=== PATIENT | male | born 1975 | race American Indian/Alaskan Native ===

== ENCOUNTER 2020-10-09 19:26 | Inpatient (IN) | payer OTHER ==
[2020-10-09] MEDS ORDERED: ASPIRIN 325 MG TAB PO ONE (20:13)
[2020-10-09 20:33] LABS: Basophils # (Auto) 0.1 K/mm3 (0.0-0.1); Basophils % (Auto) 1.5 % (0.0-1.8); Eosinophils % (Auto) 0.1 % (0.0-4.3); Hematocrit 45.8 % (35.5-45.6); Hemoglobin 14.9 gm/dl (11.8-15.2); Lymphocytes # (Auto) 1.7 K/mm3 (1.2-5.4); Lymphocytes % (Auto) 29.4 % (13.4-35.0); Mean Corpuscular HGB Conc 33 % (32-34); Mean Corpuscular Volume 83 fl (84-94); Monocytes # (Auto) 0.6 K/mm3 (0.0-0.8); Monocytes % (Auto) 9.6 % (0.0-7.3); Platelet Count 301 K/mm3 (140-440); Red Blood Count 5.55 M/mm3 (3.65-5.03); Red Cell Distribution Width 15.7 % (13.2-15.2)
[2020-10-09 20:41] LABS: INR 1.34 (0.87-1.13)
[2020-10-09 20:55] LABS: Albumin 3.2 g/dL (3.9-5)
--- NOTE | 2020-10-09 20:57 | Emergency Department Report ---
ED Chest Pain HPI - General Chief Complaint: Chest Pain Stated Complaint: CHEST PAIN/SOB/ABDOMINAL PAIN Time Seen by Provider: 10/09/20 20:18 Source: patient Mode of arrival: Ambulatory Limitations: No Limitations - History of Present Illness Initial Comments: This is a 44-year-old -[place] male presents to the emergency department with complaint of shortness of breath and left-sided chest pain and upper abdominal pain that has been going on for the past 4 days. It is associated with some nausea and vomiting. Patient also has an occasional mixed dry and productive cough. The patient says that the chest and abdominal pain feels like "gas that will not leave." He presents with extremely elevated blood pressure and does admit to a history of hypertension but says that he was taken off of his blood pressure medication by his physician. Patient quit smoking cigarettes about 2 weeks ago. He has a significant family history as his father had an [place] at the age of 43. No recent travel or sick contacts at home. No known aggravating or alleviating factors. - Related Data Allergies Allergy/AdvReac Type Severity Reaction Status Date / Time No Known Allergies Allergy Verified 10/09/20 20:07 Heart Score - HEART Score History: Slightly suspicious EKG: Non-specific Age: 45-65 Risk factors: 1-2 risk factors Troponin: > 3x normal limit HEART Score: 5 - EKG Read Time Time EKG Completed: 20:12 EKG Read Time: 20:15 - Critical Actions Critical Actions: 4-6 pts:12-16.6% risk of adverse cardiac event. Should be admitted ED Review of Systems ROS: Stated complaint: CHEST PAIN/SOB/ABDOMINAL PAIN Other details as noted in HPI Comment: All other systems reviewed and negative Constitutional: denies: chills, fever Eyes: denies: eye pain, vision change ENT: denies: ear pain, throat pain Respiratory: cough, shortness of breath Cardiovascular: chest pain. denies: edema Gastrointestinal: abdominal pain, nausea, vomiting Genitourinary: denies: dysuria, discharge Musculoskeletal: denies: back pain, arthralgia Skin: denies: rash, lesions Neurological: denies: headache, weakness ED Past Medical Hx - Past Medical History Previous Medical History?: Yes Hx Hypertension: Yes (Not on meds) - Surgical History Past Surgical History?: Yes Hx Appendectomy: Yes - Social History Smoking Status: Former Smoker Substance Use Type: None ED Physical Exam - General Limitations: No Limitations - Other Other exam information: GENERAL: The patient is well-developed well-nourished. HENT: Normocephalic. Atraumatic. Patient has moist mucous membranes. EYES: Extraocular motions are intact. NECK: Supple. Trachea is midline. CHEST/LUNGS: Coarse breath sounds throughout the chest. There is moderate tachypnea. No cough heard. HEART/CARDIOVASCULAR: Regular. There is moderate tachycardia. There is no murmur. ABDOMEN: Abdomen is soft, nontender. Patient has normal bowel sounds. There is no abdominal distention. SKIN: Skin is warm and dry. NEURO: The patient is awake, alert, and oriented. The patient is cooperative. The patient has no focal neurologic deficits. Normal speech. MUSCULOSKELETAL: There is no tenderness or deformity. There is no limitation range of motion. ED Course Vital Signs 10/09/20 10/09/20 10/09/20 20:05 21:30 21:46 Temperature 98.4 F Pulse Rate 126 H 116 H 116 H Respiratory 18 37 H 38 H Rate Blood Pressure 241/161 226/161 214/158 Blood Pressure [Left] O2 Sat by Pulse 98 96 99 Oximetry 10/09/20 10/09/20 10/09/20 22:00 22:02 22:11 Temperature 98.2 F Pulse Rate 122 H 123 H 100 H Respiratory 40 H 36 H Rate Blood Pressure 214/158 222/162 Blood Pressure 173/129 [Left] O2 Sat by Pulse 97 100 Oximetry - Consultations Consultation #1: 10/09/20 [id number] I spoke to the director paid media on-call, Dr. Hugo, regarding the patient's presentation, chest x-ray and EKG findings, as well as the elevated troponin. He agrees with the plan for placing the patient on heparin and they will follow the patient as a consult. SARAH score - Sarah Score Age > 65: (0) No Aspirin use within the Past 7 Days: (0) No 3 or more CAD Risk Factors: (0) No 2 or more Angina events in past 24 hrs: (1) Yes Known CAD with more than 50% Stenosis: (0) No Elevated Cardiac Markers: (1) Yes ST Deviation Greater than 0.5mm: (1) Yes SARAH Score: 3 ED Medical Decision Making - Lab Data Result diagrams: 10/09/20 20:18 10/09/20 20:18 Lab Results 10/09/20 10/09/20 10/09/20 Range/Units 20:18 20:18 20:23 WBC 5.8 (4.5-11.0) K/mm3 RBC 5.55 H (3.65-5.03) M/mm3 Hgb 14.9 (11.8-15.2) gm/dl Hct 45.8 H (35.5-45.6) % MCV 83 L (84-94) fl MCH 27 L (28-32) pg MCHC 33 (32-34) % RDW 15.7 H (13.2-15.2) % Plt Count 301 (140-440) K/mm3 Lymph % (Auto) 29.4 (13.4-35.0) % [place] % (Auto) 9.6 H (0.0-7.3) % Eos % (Auto) 0.1 (0.0-4.3) % Baso % (Auto) 1.5 (0.0-1.8) % Lymph # (Auto) 1.7 (1.2-5.4) K/mm3 [place] # (Auto) 0.6 (0.0-0.8) K/mm3 Eos # (Auto) 0.0 (0.0-0.4) K/mm3 Baso # (Auto) 0.1 (0.0-0.1) K/mm3 Seg Neutrophils % 59.4 (40.0-70.0) % Seg Neutrophils # 3.5 (1.8-7.7) K/mm3 PT (12.2-14.9) Sec. INR (0.87-1.13) D-Dimer (0-234) ng/mlDDU Sodium 130 L (137-145) mmol/L Potassium 4.0 (3.6-5.0) mmol/L Chloride 94.9 L (98-107) mmol/L Carbon Dioxide 21 L (22-30) mmol/L Anion Gap 18 mmol/L BUN 30 H (9-20) mg/dL Creatinine 2.6 H (0.8-1.3) mg/dL Estimated GFR 32 ml/min BUN/Creatinine Ratio 12 % Glucose 137 H (75-100) mg/dL Calcium 9.0 (8.4-10.2) mg/dL Ferritin (30.0-300.0) ng/mL Total Bilirubin 0.80 (0.1-1.2) mg/dL AST 54 H (5-40) units/L ALT 84 H (7-56) units/L Alkaline Phosphatase 128 (35-129) units/L Lactate Dehydrogenase (91-180) units/L Troponin T 0.121 H* (0.00-0.029) ng/mL C-Reactive Protein (0.00-1.30) mg/dL NT-Pro-B Natriuret Pep (0-450) pg/mL Total Protein 6.1 L (6.3-8.2) g/dL Albumin 3.2 L (3.9-5) g/dL Albumin/Globulin Ratio 1.1 % Triglycerides 88 (2-149) mg/dL Cholesterol 115 (50-199) mg/dL LDL Cholesterol Direct 75 (50-130) mg/dL HDL Cholesterol 28 L (40-59) mg/dL Cholesterol/HDL Ratio 4.10 % Lipase 20 (13-60) units/L 10/09/20 10/09/20 10/09/20 Range/Units 20:23 20:23 20:25 WBC (4.5-11.0) K/mm3 RBC (3.65-5.03) M/mm3 Hgb (11.8-15.2) gm/dl Hct (35.5-45.6) % MCV (84-94) fl MCH (28-32) pg MCHC (32-34) % RDW (13.2-15.2) % Plt Count (140-440) K/mm3 Lymph % (Auto) (13.4-35.0) % [place] % (Auto) (0.0-7.3) % Eos % (Auto) (0.0-4.3) % Baso % (Auto) (0.0-1.8) % Lymph # (Auto) (1.2-5.4) K/mm3 [place] # (Auto) (0.0-0.8) K/mm3 Eos # (Auto) (0.0-0.4) K/mm3 Baso # (Auto) (0.0-0.1) K/mm3 Seg Neutrophils % (40.0-70.0) % Seg Neutrophils # (1.8-7.7) K/mm3 PT 16.6 H (12.2-14.9) Sec. INR 1.34 H (0.87-1.13) D-Dimer 834.1 H (0-234) ng/mlDDU Sodium (137-145) mmol/L Potassium (3.6-5.0) mmol/L Chloride (98-107) mmol/L Carbon Dioxide (22-30) mmol/L Anion Gap mmol/L BUN (9-20) mg/dL Creatinine (0.8-1.3) mg/dL Estimated GFR ml/min BUN/Creatinine Ratio % Glucose (75-100) mg/dL Calcium (8.4-10.2) mg/dL Ferritin (30.0-300.0) ng/mL Total Bilirubin (0.1-1.2) mg/dL AST (5-40) units/L ALT (7-56) units/L Alkaline Phosphatase (35-129) units/L Lactate Dehydrogenase (91-180) units/L Troponin T (0.00-0.029) ng/mL C-Reactive Protein (0.00-1.30) mg/dL NT-Pro-B Natriuret Pep 48983 H (0-450) pg/mL Total Protein (6.3-8.2) g/dL Albumin (3.9-5) g/dL Albumin/Globulin Ratio % Triglycerides (2-149) mg/dL Cholesterol (50-199) mg/dL LDL Cholesterol Direct (50-130) mg/dL HDL Cholesterol (40-59) mg/dL Cholesterol/HDL Ratio % Lipase (13-60) units/L 10/09/20 10/09/20 10/09/20 Range/Units 22:50 22:50 22:50 WBC (4.5-11.0) K/mm3 RBC (3.65-5.03) M/mm3 Hgb (11.8-15.2) gm/dl Hct (35.5-45.6) % MCV (84-94) fl MCH (28-32) pg MCHC (32-34) % RDW (13.2-15.2) % Plt Count (140-440) K/mm3 Lymph % (Auto) (13.4-35.0) % [place] % (Auto) (0.0-7.3) % Eos % (Auto) (0.0-4.3) % Baso % (Auto) (0.0-1.8) % Lymph # (Auto) (1.2-5.4) K/mm3 [place] # (Auto) (0.0-0.8) K/mm3 Eos # (Auto) (0.0-0.4) K/mm3 Baso # (Auto) (0.0-0.1) K/mm3 Seg Neutrophils % (40.0-70.0) % Seg Neutrophils # (1.8-7.7) K/mm3 PT (12.2-14.9) Sec. INR (0.87-1.13) D-Dimer (0-234) ng/mlDDU Sodium (137-145) mmol/L Potassium (3.6-5.0) mmol/L Chloride (98-107) mmol/L Carbon Dioxide (22-30) mmol/L Anion Gap mmol/L BUN (9-20) mg/dL Creatinine (0.8-1.3) mg/dL Estimated GFR ml/min BUN/Creatinine Ratio % Glucose (75-100) mg/dL Calcium (8.4-10.2) mg/dL Ferritin 70.3 (30.0-300.0) ng/mL Total Bilirubin (0.1-1.2) mg/dL AST (5-40) units/L ALT (7-56) units/L Alkaline Phosphatase (35-129) units/L Lactate Dehydrogenase 504 H (91-180) units/L Troponin T 0.129 H* (0.00-0.029) ng/mL C-Reactive Protein 1.00 (0.00-1.30) mg/dL NT-Pro-B Natriuret Pep (0-450) pg/mL Total Protein (6.3-8.2) g/dL Albumin (3.9-5) g/dL Albumin/Globulin Ratio % Triglycerides (2-149) mg/dL Cholesterol (50-199) mg/dL LDL Cholesterol Direct (50-130) mg/dL HDL Cholesterol (40-59) mg/dL Cholesterol/HDL Ratio % Lipase (13-60) units/L - EKG Data -: EKG Interpreted by Me EKG shows normal: sinus rhythm, axis (Left axis deviation), intervals, QRS complexes (Q waves to the septal leads, LVH), ST-T waves (Anterior J-point elevation, T wave inversions to the lateral leads) Rate: tachycardia (127 bpm) - EKG Data When compared to previous EKG there are: previous EKG unavailable Interpretation: other (Sinus tachycardia 127 bpm, borderline left axis de viation, LVH, Q waves to the septal leads, J-point elevation to the septal and anterior leads, T wave inversions in the lateral leads) - Radiology Data Radiology results: report reviewed CHEST / ABDOMEN 1 VIEW INDICATION / CLINICAL INFORMATION: Abd pain. COMPARISON: None available. FINDINGS: SUPPORT DEVICES: None. HEART / MEDIASTINUM: Upper limits normal size cardiac silhouette. Hilar and mediastinal contours demonstrate no significant abnormality. LUNGS / PLEURA: Mild right basilar airspace opacities and blunting of the right costophrenic angle suggesting a small right-sided pleural effusion. No pneumothorax. TUBES / LINES: None. BOWEL GAS PATTERN: No significant abnormality. FREE AIR / EXTRALUMINAL GAS: None seen. ADDITIONAL FINDINGS: Hepatic shadow appears enlarged. IMPRESSION: 1. Mild right pleural-parenchymal disease. Findings could be seen in the setting of aspiration or pneumonia. Recommend clinical correlation and follow-up until resolution. 2. Findings suggestive of hepatomegaly. Nuclear medicine perfusion scan was negative for any pulmonary embolism. - Medical Decision Making This patient presents to the emergency department with a 4-day history of some left-sided chest pain, left-sided upper abdominal pain, shortness of breath, and some episodes of nausea with vomiting. The patient presents with moderate tachycardia and tachypnea. He has some coarse breath sounds and some rhonchi heard. Chest x-ray shows some pulmonary vascular congestion, but x-ray was read by radiology as showing some right-sided opacity concerning for aspiration versus pneumonia. The patient also presents with extremely elevated blood pressure of 240/160. Patient was given a dose of IV labetalol with some mild improvement. EKG did not have any morphology consistent with ST elevation myocardial infarction. However it does show LVH, J-point elevation, Q waves to the septal leads. The patient's labs show acute renal failure with a GFR of about 35, and elevated proBNP of about 35,000, some mild transaminitis, and an elevated troponin of 0.12. The patient also had an elevated D-dimer level. For this reason he was sent for a perfusion scan that came back resulting as negative for any pulmonary embolism. Cardiology was contacted and consulted. The patient was placed on a heparin drip. The patient was made a PUI with droplet precautions and patient isolation secondary to the shortness of breath, abnormal chest x-ray, and some elevated inflammatory markers such as D-dimer and LDH. Patient has been given a dose of IV Lasix for diuresis and also was given some antibiotics. He will be admitted to telemetry and was accepted for admission by the hospitalist, Dr. Moser. Critical Care Time: Yes Critical care time in (mins) excluding proc time.: 40 Critical care attestation.: If time is entered above; I have spent that time in minutes in the direct care of this critically ill patient, excluding procedure time. Critical care time was spent on this patient in doing his initial evaluation, mu ltiple reevaluations, ordering and interpretation of labs and imaging, IV antihypertensive medication for his accelerated hypertension, IV heparin bolus and drip for his NSTEMI, discussion with the cardiology service, multiple discussions with the patient. Critical Care Time: 40 minutes ED Disposition Clinical Impression: NSTEMI (non-ST elevated myocardial infarction), Suspected 2019 novel coronavirus infection, Accelerated hypertension Acute renal failure Qualifiers: Acute renal failure type: unspecified Qualified Code(s): N17.9 - Acute kidney failure, unspecified CHF (congestive heart failure) Qualifiers: Heart failure type: unspecified Heart failure chronicity: acute Qualified Code(s): I50.9 - Heart failure, unspecified Disposition: 09 OP ADMIT IP TO THIS HOSP Is pt being admited?: Yes Condition: Serious Time of Disposition: 23:57
[2020-10-09 21:13] LABS: Chol/HDL Ratio 4.1 %
--- NOTE | 2020-10-09 21:34 | XRay Report ---
CHEST / ABDOMEN 1 VIEW INDICATION / CLINICAL INFORMATION: Abd pain. COMPARISON: None available. FINDINGS: SUPPORT DEVICES: None. HEART / MEDIASTINUM: Upper limits normal size cardiac silhouette. Hilar and mediastinal contours demo nstrate no significant abnormality. LUNGS / PLEURA: Mild right basilar airspace opacities and blunting of the right costophrenic angle bolton ggesting a small right-sided pleural effusion. No pneumothorax. TUBES / LINES: None. BOWEL GAS PATTERN: No significant abnormality. FREE AIR / EXTRALUMINAL GAS: None seen. ADDITIONAL FINDINGS: Hepatic shadow appears enlarged. IMPRESSION: 1. Mild right pleural-parenchymal disease. Findings could be seen in the setting of aspiration or pne umonia. Recommend clinical correlation and follow-up until resolution. 2. Findings suggestive of hepatomegaly. Signer Name: Chris Pollard MD Signed: 10/09/2020 9:29 PM Workstation Name: [id number]
[2020-10-09] MEDS ORDERED: FUROSEMIDE 20 MG/2 ML INJ IV ONE (22:16)
[2020-10-09] MEDS ORDERED: HEPARIN 10,000 UNITS/10 ML VIAL IV ONE (23:47)
[2020-10-09] MEDS ORDERED: HEPARIN 10,000 UNITS/10 ML VIAL IV PRN (23:47)
[2020-10-09] MEDS ORDERED: cefTRIAXone/NS 1 GM/50 ML 1 GM/50 ML BAG IV ONE (23:55)
[2020-10-09] MEDS ORDERED: AZITHROMYCIN/NS 500 MG/250 ML 500 MG/250 ML BAG IV ONE (23:56)
[2020-10-10] MEDS ORDERED: MAGNESIUM HYDROXIDE (MOM) ORAL LIQD UDC PO PRN (00:36)
[2020-10-10] MEDS ORDERED: ACETAMINOPHEN 325 MG TAB PO PRN ×2 (00:36)
[2020-10-10] MEDS ORDERED: ONDANSETRON 4 MG/2 ML INJ IV PRN (00:36)
[2020-10-10] MEDS ORDERED: MORPHINE 2 MG/1 ML INJ IV PRN (00:36)
[2020-10-10] MEDS ORDERED: NITROGLYCERIN 0.4 MG TAB SUBL SL PRN (00:36)
--- NOTE | 2020-10-10 00:51 | History and Physical Report ---
History of Present Illness Date of examination: 10/10/20 Date of admission: 10/09/20 23:57 Chief complaint: Shortness of Breath History of present illness: 44-year-old -Citizen Of [place] male with known history of hypertension presenting to the emergency room today complaining of shortness of breath and left-sided chest pain. Symptoms have been ongoing for about 4 days. He has had associated nausea and vomiting and some abdominal discomfort. Patient also indicates that he has had some cough which is occasionally productive of some whitish sputum. He assumed that this is abdominal pain was due to gas and did not resolve. Patient indicates that he was taken off his blood pressure medication by his primary care physician a while ago. He also quit tobacco use about 2 weeks ago. He admits that his father had myocardial infarction at age of 43. He denies any fever or chills, no headache or dizziness, no diaphoresis, no hematuria or dysuria, no diarrhea. Upon arrival in the emergency room blood pressure was quite elevated with systolic in the 200s and diastolic in the 160s. Was given some IV labetalol in the emergency room. Work-up in the emergency room today reveals elevated troponin, elevated BNP and chest x-ray shows sinus compatible with volume overload and possible underlying pneumonia. VQ scan was unremarkable. Patient is being admitted with hypertensive emergency, NSTEMI, CHF and PRIETO. Patient has been started on heparin drip. Past History Past Medical History: hypertension Past Surgical History: appendectomy Social history: smoking (Former Smoker) Family history: CAD (Father had [place] at age 43) Medications and Allergies Allergies Allergy/AdvReac Type Severity Reaction Status Date / Time No Known Allergies Allergy Verified 10/09/20 20:07 Active Meds: Active Medications Acetaminophen (Acetaminophen 325 Mg Tab) 650 mg PO Q4H PRN PRN Reason: Pain MILD(1-3)/Fever >100.5/[place] Acetaminophen (Acetaminophen 325 Mg Tab) 650 mg PO Q6H PRN PRN Reason: Pain, Mild (1-3) Furosemide (Furosemide 40 Mg/4 Ml Inj) 40 mg IV BID@0600,1800 AMANDA Heparin Sodium (Porcine) (Heparin 10,000 Units/10 Ml Vial) 3,600 unit 40 unit/kg (3600 unit) IV Q6H PRN PRN Reason: Anti-Xa Assay < 0.1 units/ml Heparin Sodium/Sodium Chloride (Heparin/ 0.45% Nacl-25,000 Unit/500 Ml) 25,000 unit in 500 mls @ 20 mls/hr IV TITRATE AMANDA; Protocol Azithromycin (Zithromax/Ns) 500 mg in 250 mls @ 250 mls/hr IV ONCE ONE; Protocol Stop: 10/10/20 00:55 Ceftriaxone Sodium (Rocephin/Ns 2 Gm/100 Ml) 2 gm in 100 mls @ 200 mls/hr IV Q24H AMANDA; Protocol Azithromycin (Zithromax/Ns) 500 mg in 250 mls @ 250 mls/hr IV Q24H AMANDA; Protocol Magnesium Hydroxide (Magnesium Hydroxide (Mom) Oral Liqd Udc) 30 ml PO Q4H PRN PRN Reason: Constipation Nitroglycerin (Nitroglycerin 0.4 Mg Tab Subl) 0.4 mg SL .Q5MIN PRN PRN Reason: Chest Pain Ondansetron HCl (Ondansetron 4 Mg/2 Ml Inj) 4 mg IV Q8H PRN PRN Reason: Nausea And Vomiting Sodium Chloride (Sodium Chloride 0.9% 10 Ml Flush Syringe) 10 ml IV BID AMANDA Sodium Chloride (Sodium Chloride 0.9% 10 Ml Flush Syringe) 10 ml IV PRN PRN PRN Reason: LINE FLUSH Sodium Chloride (Sodium Chloride 0.9% 10 Ml Flush Syringe) 10 ml IV PRN PRN PRN Reason: LINE FLUSH Review of Systems Constitutional: no fever, no chills Ears, nose, mouth and throat: no nasal congestion, no sore throat Cardiovascular: chest pain, no palpitations Respiratory: shortness of breath, no cough Gastrointestinal: abdominal pain, nausea, vomiting, no diarrhea Genitourinary Male: no dysuria, no hematuria, no flank pain Musculoskeletal: no neck pain, no low back pain Integumentary: no rash, no pruritis Neurological: no headaches, no confusion Psychiatric: no anxiety, no depression Endocrine: no polyphagia, no polydipsia, no polyuria, no nocturia Exam - Constitutional Vitals: Temp Pulse Resp BP Pulse Ox 98.2 F 100 H 36 H 173/129 100 10/09/20 22:11 10/09/20 22:11 10/09/20 22:11 10/09/20 22:11 10/09/20 22:11 General appearance: Present: no acute distress, well-nourished - EENT Eyes: Present: PERRL, EOM intact. Absent: scleral icterus ENT: hearing intact, clear oral mucosa, dentition normal - Neck Neck: Present: supple, normal ROM - Respiratory Respiratory effort: normal Respiratory: bilateral: diminished - Cardiovascular Rhythm: regular Heart Sounds: Present: S1 & S2. Absent: gallop, systolic murmur, diastolic murmur, rub, click - Extremities Extremities: no ischemia, pulses intact, pulses symmetrical, No edema, normal temperature, normal color, Full ROM Peripheral Pulses: within normal limits - Abdominal General gastrointestinal: Present: soft, non-tender, non-distended, normal bowel sounds. Absent: mass - Integumentary Integumentary: Present: clear, warm, dry. Absent: rash - Musculoskeletal Musculoskeletal: strength equal bilaterally - Psychiatric Psychiatric: appropriate mood/affect, intact judgment & insight, memory intact, cooperative - Neurologic Neurologic: CNII-XII intact, no focal deficits, moves all extremities HEART Score - HEART Score History: Moderately suspicious EKG: Normal Age: 45-65 Risk factors: 1-2 risk factors Troponin: Troponin T 0.129 ng/mL (0.00-0.029) H* 10/09/20 22:50 Troponin: > 3x normal limit HEART Score: 5 Results - Labs CBC & Chem 7: 10/09/20 20:18 10/09/20 20:18 Labs: Abnormal lab results 10/09/20 10/09/20 10/09/20 Range/Units 20:18 20:18 20:23 RBC 5.55 H (3.65-5.03) M/mm3 Hct 45.8 H (35.5-45.6) % MCV 83 L (84-94) fl MCH 27 L (28-32) pg RDW 15.7 H (13.2-15.2) % [place] % (Auto) 9.6 H (0.0-7.3) % PT 16.6 H (12.2-14.9) Sec. INR 1.34 H (0.87-1.13) D-Dimer (0-234) ng/mlDDU Sodium 130 L (137-145) mmol/L Chloride 94.9 L (98-107) mmol/L Carbon Dioxide 21 L (22-30) mmol/L BUN 30 H (9-20) mg/dL Creatinine 2.6 H (0.8-1.3) mg/dL Glucose 137 H (75-100) mg/dL AST 54 H (5-40) units/L ALT 84 H (7-56) units/L Lactate Dehydrogenase (91-180) units/L Troponin T 0.121 H* (0.00-0.029) ng/mL NT-Pro-B Natriuret Pep (0-450) pg/mL Total Protein 6.1 L (6.3-8.2) g/dL Albumin 3.2 L (3.9-5) g/dL HDL Cholesterol 28 L (40-59) mg/dL 10/09/20 10/09/20 10/09/20 Range/Units 20:23 20:25 22:50 RBC (3.65-5.03) M/mm3 Hct (35.5-45.6) % MCV (84-94) fl MCH (28-32) pg RDW (13.2-15.2) % [place] % (Auto) (0.0-7.3) % PT (12.2-14.9) Sec. INR (0.87-1.13) D-Dimer 834.1 H (0-234) ng/mlDDU Sodium (137-145) mmol/L Chloride (98-107) mmol/L Carbon Dioxide (22-30) mmol/L BUN (9-20) mg/dL Creatinine (0.8-1.3) mg/dL Glucose (75-100) mg/dL AST (5-40) units/L ALT (7-56) units/L Lactate Dehydrogenase (91-180) units/L Troponin T 0.129 H* (0.00-0.029) ng/mL NT-Pro-B Natriuret Pep 10383 H (0-450) pg/mL Total Protein (6.3-8.2) g/dL Albumin (3.9-5) g/dL HDL Cholesterol (40-59) mg/dL 10/09/20 Range/Units 22:50 RBC (3.65-5.03) M/mm3 Hct (35.5-45.6) % MCV (84-94) fl MCH (28-32) pg RDW (13.2-15.2) % [place] % (Auto) (0.0-7.3) % PT (12.2-14.9) Sec. INR (0.87-1.13) D-Dimer (0-234) ng/mlDDU Sodium (137-145) mmol/L Chloride (98-107) mmol/L Carbon Dioxide (22-30) mmol/L BUN (9-20) mg/dL Creatinine (0.8-1.3) mg/dL Glucose (75-100) mg/dL AST (5-40) units/L ALT (7-56) units/L Lactate Dehydrogenase 504 H (91-180) units/L Troponin T (0.00-0.029) ng/mL NT-Pro-B Natriuret Pep (0-450) pg/mL Total Protein (6.3-8.2) g/dL Albumin (3.9-5) g/dL HDL Cholesterol (40-59) mg/dL Assessment and Plan - Patient Problems (1) NSTEMI (non-ST elevated myocardial infarction) Current Visit: Yes Status: Acute Plan to address problem: Patient admitted and placed on telemetry. Will check serial cardiac enzymes. Patient has been placed on aspirin, sublingual nitroglycerin and IV morphine as needed for chest pain. He has also been placed on heparin drip. Consult placed to cardiology for evaluation. (2) Accelerated hypertension Current Visit: Yes Status: Acute Plan to address problem: Possibly secondary to noncompliance with medications. We will resume routine home medications once reconciled. We will also place on IV hydralazine as needed for optimal blood pressure control. (3) Acute renal failure Current Visit: Yes Status: Acute Qualifiers: Acute renal failure type: unspecified Qualified Code(s): N17.9 - Acute kidney failure, unspecified Plan to address problem: We will monitor BUN and creatinine. Consult will be placed to nephrology for evaluation. (4) CHF (congestive heart failure) Current Visit: Yes Status: Acute Qualifiers: Heart failure type: unspecified Heart failure chronicity: acute Qualified Code(s): I50.9 - Heart failure, unspecified Plan to address problem: Patient will be placed on diuretics. We will monitor inputs and outputs and also monitoring daily weights. Patient will be scheduled for echocardiogram. (5) Suspected 2019 novel coronavirus infection Current Visit: Yes Status: Acute Plan to address problem: Patient will be placed on isolation precautions. We will await COVID-19 testing. Consult placed to infectious disease for evaluation. (6) DVT prophylaxis Current Visit: Yes Status: Acute Plan to address problem: Patient currently on anticoagulation. (7) Full code status Current Visit: Yes Status: Acute Plan to address problem: Patient is full code.
[2020-10-10] MEDS: HEPARIN/ 0.45% NACL DRIP 25,000 UNIT/500 ML BAG IV SCH ×2 (00:53→21:47)
[2020-10-10] MEDS ORDERED: hydrALAZINE 20 MG/1 ML INJ IV ONE (01:08)
[2020-10-10] MEDS ORDERED: METOPROLOL TARTRATE 5 MG/5 ML INJ IV ONE (04:55)
[2020-10-10] MEDS ORDERED: FUROSEMIDE 40 MG/4 ML INJ IV SCH (06:00)
--- NOTE | 2020-10-10 07:18 | Nuclear Medicine Report ---
Nuclear medicine perfusion lung scan Indication: Shortness of breath Technique: 5.5 mCi of Tc 99m MAA were given by IV. Findings: Comparison with chest radiograph from earlier today.. Perfusion images are unremarkable; specifically, no wedge-shaped, pleural-based, segmental defects ar e seen. Impression: Normal perfusion scan. Signer Name: Antwan Sandoval MD Signed: 10/09/2020 11:23 PM Workstation Name: [id number]
[2020-10-10 08:31] LABS: C-Reactive Protein 1.4 mg/dL (0.00-1.30)
[2020-10-10] MEDS: hydrALAZINE 20 MG/1 ML INJ IV PRN (08:56)
--- NOTE | 2020-10-10 09:13 | Consultation ---
History of Present Illness Consult date: 10/10/20 Requesting physician: ANNA DONALD Consult reason: abnormal cardiac enzymes, chest pain History of present illness: 44 y/o male with htn, non compliant with followup, denies renal insufficency, has htn smoker and having four days left sided chest pain no radation, no aggravating symptoms. mild sob, under pui, mild nausea no vomiting, no fevers. on iv heparin. is cp free this am. pt states last month was able to walk and no sob. Past History Past Medical History: hypertension Past Surgical History: appendectomy Social history: smoking (Former Smoker) Family history: CAD (Father had CA at age 43) Medications and Allergies Allergies Allergy/AdvReac Type Severity Reaction Status Date / Time No Known Allergies Allergy Verified 10/09/20 20:07 Active Meds: Active Medications Acetaminophen (Acetaminophen 325 Mg Tab) 650 mg PO Q4H PRN PRN Reason: Pain MILD(1-3)/Fever >100.5/[place] Aspirin (Aspirin Ec 325 Mg Tab) 325 mg PO QDAY [facility] Heparin Sodium (Porcine) (Heparin 10,000 Units/10 Ml Vial) 3,600 unit 40 unit/kg (3600 unit) IV Q6H PRN PRN Reason: Anti-Xa Assay < 0.1 units/ml Hydralazine HCl (Hydralazine 20 Mg/1 Ml Inj) 10 mg IV Q4HR PRN PRN Reason: Blood Pressure Last Admin: 10/10/20 08:56 Dose: 10 mg Documented by: Hydralazine HCl (Hydralazine 25 Mg Tab) 50 mg PO Q8HR [facility] Heparin Sodium/Sodium Chloride (Heparin/ 0.45% Nacl-25,000 Unit/500 Ml) 25,000 unit in 500 mls @ 20 mls/hr IV TITRATE [facility]; Protocol Last Titration: 10/10/20 08:57 Dose: 1,100 units/hr, 22 mls/hr Documented by: Ceftriaxone Sodium (Rocephin/Ns 2 Gm/100 Ml) 2 gm in 100 mls @ 200 mls/hr IV Q24H [facility]; Protocol Azithromycin (Zithromax/Ns) 500 mg in 250 mls @ 250 mls/hr IV Q24H [facility]; Protocol Isosorbide Mononitrate (Isosorbide Mononitrate Er 30 Mg Tab) 30 mg PO QDAY [facility] Magnesium Hydroxide (Magnesium Hydroxide (Mom) Oral Liqd Udc) 30 ml PO Q4H PRN PRN Reason: Constipation Metoprolol Tartrate (Metoprolol Tartrate 50 Mg Tab) 50 mg PO BID [facility] Morphine Sulfate (Morphine 2 Mg/1 Ml Inj) 2 mg IV Q5MIN PRN PRN Reason: Chest Pain unrelieved by NTG Nitroglycerin (Nitroglycerin 0.4 Mg Tab Subl) 0.4 mg SL .Q5MIN PRN PRN Reason: Chest Pain Ondansetron HCl (Ondansetron 4 Mg/2 Ml Inj) 4 mg IV Q8H PRN PRN Reason: Nausea And Vomiting Sodium Chloride (Sodium Chloride 0.9% 10 Ml Flush Syringe) 10 ml IV BID [facility] Sodium Chloride (Sodium Chloride 0.9% 10 Ml Flush Syringe) 10 ml IV PRN PRN PRN Reason: LINE FLUSH Review of Systems All systems: negative (as per hpi) Physical Examination Vital Signs Temp Pulse Resp BP Pulse Ox 98.4 F 126 H 18 241/161 98 10/09/20 20:05 10/09/20 20:05 10/09/20 20:05 10/09/20 20:05 10/09/20 20:05 General appearance: no acute distress, well-nourished HEENT: Positive: PERRL, Mucus Membranes Moist Neck: Positive: neck supple, trachea midline Cardiac: Positive: Reg Rate and Rhythm, S1/S2. Negative: Audible Murmur Lungs: Positive: clear to auscultation, Normal Breath Sounds Neuro: Positive: Grossly Intact Abdomen: Positive: Soft, Active Bowel Sounds. Negative: Tender, Distended Male genitourinary: Positive: normal Skin: Positive: Clear Incision: Cardiac Cath Site Musculoskeletal: No Pain, Normal Range of Motion Extremities: Present: normal. Absent: edema Results 10/09/20 20:18 10/10/20 07:34 Cardiac Enzymes 10/09/20 10/09/20 10/10/20 Range/Units 20:18 22:50 07:34 AST 54 H (5-40) units/L Lactate Dehydrogenase 504 H 324 H (91-180) units/L Coagulation 10/09/20 Range/Units 20:23 PT 16.6 H (12.2-14.9) Sec. INR 1.34 H (0.87-1.13) Lipids 10/09/20 Range/Units 20:18 Triglycerides 88 (2-149) mg/dL Cholesterol 115 (50-199) mg/dL HDL Cholesterol 28 L (40-59) mg/dL Cholesterol/HDL Ratio 4.10 % CBC 10/09/20 Range/Units 20:18 WBC 5.8 (4.5-11.0) K/mm3 RBC 5.55 H (3.65-5.03) M/mm3 Hgb 14.9 (11.8-15.2) gm/dl Hct 45.8 H (35.5-45.6) % Plt Count 301 (140-440) K/mm3 Lymph # (Auto) 1.7 (1.2-5.4) K/mm3 [place] # (Auto) 0.6 (0.0-0.8) K/mm3 Eos # (Auto) 0.0 (0.0-0.4) K/mm3 Baso # (Auto) 0.1 (0.0-0.1) K/mm3 Comprehensive Metabolic Panel 10/09/20 10/10/20 Range/Units 20:18 07:34 Sodium 130 L (137-145) mmol/L Potassium 4.0 (3.6-5.0) mmol/L Chloride 94.9 L (98-107) mmol/L Carbon Dioxide 21 L (22-30) mmol/L BUN 30 H (9-20) mg/dL Creatinine 2.6 H (0.8-1.3) mg/dL Glucose 137 H 91 (75-100) mg/dL Calcium 9.0 (8.4-10.2) mg/dL AST 54 H (5-40) units/L ALT 84 H (7-56) units/L Alkaline Phosphatase 128 (35-129) units/L Total Protein 6.1 L (6.3-8.2) g/dL Albumin 3.2 L (3.9-5) g/dL - Imaging and Cardiology Echo: pending EKG interpretations - Telemetry EKG Rhythm: Sinus Rhythm (nsr lvh with strain) Assessment and Plan will stop lasix, in view of renal failure and pt sob has improved and no swelling, start lopressor and hydralzine and imdur and cont heparin for 48 hours and stress in am - Patient Problems (1) Hypertension Current Visit: Yes Status: Acute (2) Accelerated hypertension Current Visit: Yes Status: Acute (3) Acute renal failure Current Visit: Yes Status: Acute Qualifiers: Acute renal failure type: unspecified Qualified Code(s): N17.9 - Acute kidney failure, unspecified (4) CHF (congestive heart failure) Current Visit: Yes Status: Acute Qualifiers: Heart failure type: unspecified Heart failure chronicity: acute Qualified Code(s): I50.9 - Heart failure, unspecified (5) NSTEMI (non-ST elevated myocardial infarction) Current Visit: Yes Status: Acute Plan to address problem: type 2
[2020-10-10 09:30] LABS: Calcium 8.5 mg/dL (8.4-10.2)
[2020-10-10] MEDS: hydrALAZINE 25 MG TAB PO SCH ×3 (09:48→21:45)
[2020-10-10] MEDS: METOPROLOL TARTRATE 50 MG TAB PO SCH ×2 (09:48→21:45)
[2020-10-10] MEDS ORDERED: carvediloL 3.125 MG TAB PO SCH (10:00)
--- NOTE | 2020-10-10 10:00 | Consultation ---
History of Present Illness - Reason for Consult Consult date: 10/10/20 acute renal failure - History of Present Illness The patient is a 44 YO AAM with known history of Hypertension (not taking meds for the past 7 yrs) and Tobacco use who presented to [facility] ED 10/09 with complaining of shortness of breath and left-sided chest pain for about 4 days. He has had associated nausea, vomiting, some abdominal discomfort and some cough which is occasionally productive of some whitish sputum. He denies any fever, chills, headache, dizziness, diaphoresis, hematuria, dysuria, diarrhea or NSAID intake. Upon arrival to ED blood pressure was quite elevated with systolic in the 200s and diastolic in the 160s. He was given IV labetalol in the ED. Work- up in the ED revealed elevated troponin, elevated BNP, Creatinine 2.6 and chest x-ray shows signs of PNA and volume overload. Patient was admitted with hypertensive emergency, NSTEMI, CHF and PRIETO. Nephrology was consulted for further evaluation. Past History Past Medical History: hypertension Past Surgical History: appendectomy Social history: smoking (Former Smoker) Family history: CAD (Father had [place] at age 43) Medications and Allergies Allergies Allergy/AdvReac Type Severity Reaction Status Date / Time No Known Allergies Allergy Verified 10/09/20 20:07 Home Medications Medication Instructions Recorded Confirmed Last Taken Type No Known Home Medications [No 10/10/20 10/10/20 Unknown History Reported Home Medications] Active Meds: Active Medications Acetaminophen (Acetaminophen 325 Mg Tab) 650 mg PO Q4H PRN PRN Reason: Pain MILD(1-3)/Fever >100.5/[place] Aspirin (Aspirin Ec 325 Mg Tab) 325 mg PO QDAY [facility] Heparin Sodium (Porcine) (Heparin 10,000 Units/10 Ml Vial) 3,600 unit 40 unit/kg (3600 unit) IV Q6H PRN PRN Reason: Anti-Xa Assay < 0.1 units/ml Hydralazine HCl (Hydralazine 20 Mg/1 Ml Inj) 10 mg IV Q4HR PRN PRN Reason: Blood Pressure Last Admin: 10/10/20 08:56 Dose: 10 mg Documented by: Hydralazine HCl (Hydralazine 25 Mg Tab) 50 mg PO Q8HR [facility] Last Admin: 10/10/20 09:48 Dose: 50 mg Documented by: Heparin Sodium/Sodium Chloride (Heparin/ 0.45% Nacl-25,000 Unit/500 Ml) 25,000 unit in 500 mls @ 20 mls/hr IV TITRATE [facility]; Protocol Last Titration: 10/10/20 08:57 Dose: 1,100 units/hr, 22 mls/hr Documented by: Ceftriaxone Sodium (Rocephin/Ns 2 Gm/100 Ml) 2 gm in 100 mls @ 200 mls/hr IV Q24H [facility]; Protocol Azithromycin (Zithromax/Ns) 500 mg in 250 mls @ 250 mls/hr IV Q24H [facility]; Protocol Isosorbide Mononitrate (Isosorbide Mononitrate Er 30 Mg Tab) 30 mg PO QDAY [facility] Last Admin: 10/10/20 09:49 Dose: 30 mg Documented by: Magnesium Hydroxide (Magnesium Hydroxide (Mom) Oral Liqd Udc) 30 ml PO Q4H PRN PRN Reason: Constipation Metoprolol Tartrate (Metoprolol Tartrate 50 Mg Tab) 50 mg PO BID [facility] Last Admin: 10/10/20 09:48 Dose: 50 mg Documented by: Morphine Sulfate (Morphine 2 Mg/1 Ml Inj) 2 mg IV Q5MIN PRN PRN Reason: Chest Pain unrelieved by NTG Nitroglycerin (Nitroglycerin 0.4 Mg Tab Subl) 0.4 mg SL .Q5MIN PRN PRN Reason: Chest Pain Ondansetron HCl (Ondansetron 4 Mg/2 Ml Inj) 4 mg IV Q8H PRN PRN Reason: Nausea And Vomiting Sodium Chloride (Sodium Chloride 0.9% 10 Ml Flush Syringe) 10 ml IV BID [facility] Last Admin: 10/10/20 09:49 Dose: 10 ml Documented by: Sodium Chloride (Sodium Chloride 0.9% 10 Ml Flush Syringe) 10 ml IV PRN PRN PRN Reason: LINE FLUSH Review of Systems Constitutional: fatigue, no weight loss, no weight gain, no fever, no chills, no weakness Ears, nose, mouth and throat: no epistaxis Cardiovascular: chest pain, orthopnea, shortness of breath, dyspnea on exertion, high blood pressure, no edema, no syncope, no lightheadedness Respiratory: cough, cough with sputum, shortness of breath, dyspnea on exertion, no excessive sputum, no hemoptysis Gastrointestinal: abdominal pain, nausea, vomiting, no diarrhea, no hematemesis, no melena Genitourinary Male: no dysuria, no hematuria Integumentary: no redness, no jaundice Neurological: no convulsions, no aphasia, no change in speech, no change in mentation, no confusion Exam - Vital Signs Vital signs: Vital Signs Temp Pulse Resp BP Pulse Ox 98.4 F 126 H 18 241/161 98 10/09/20 20:05 10/09/20 20:05 10/09/20 20:05 10/09/20 20:05 10/09/20 20:05 Results - Lab Results 10/09/20 20:18 10/10/20 09:06 Most recent lab results Calcium 8.5 mg/dL (8.4-10.2) 10/10/20 09:06 Assessment and Plan 1. Acute kidney injury: PRIETO secondary to vasomotor insult vs ?Covid infection. UA trace protein. Renal US ordered. Monitor renal function. Suspect background CKD. Creatinine level is same as yesterday. Avoid nephrotoxic agents. Meds dosage based on GFR. 2. FEN: Hyponatremia, improving, monitor. Patient was on Lasix. Replete K. Monitor lytes and volume status. 3. Acute hypoxic respiratory failure, POA: 2/2 PNA and CHF. COVID test pending. On [place] O2. 4. NSTEMI type II: Followed by Cards. 5. CHF: Echo pending. 6. Uncontrolled HTN: 2/2 non-compliance. Monitor BP and adjust meds as needed. 7. Suspected Covid PNA: Pending results. 8. Elevated Transaminases: Monitor. Subjective: Patient was seen and examined at the bedside. Objective: General appearance: well-developed, appears stated age, slight resp distress HEENT: ATNC, pupils equal Neck: trachea midline Respiratory: faint rales heard Heart: regular, S1S2, no murmur Gastrointestinal: soft, normoactive bowel sounds, not tender Integumentary: no rash, warm and dry Ext: no edema Neurologic: AO, able to move extremities Musculoskeletal: no obvious deformity
[2020-10-10] MEDS ORDERED: POTASSIUM CHLORIDE ER 20 MEQ TAB PO ONE (11:00)
[2020-10-10 12:42] LABS: Bilirubin,Urine NEG (Negative); Blood,Urine NEG (Negative); Color,Urine Straw (Yellow); Urobilinogen,Urine < 2.0 mg/dL (<2.0)
[2020-10-10 12:49] LABS: WBC,Urine < 1.0 /HPF (0.0-6.0)
--- NOTE | 2020-10-10 13:45 | Consultation ---
History of Present Illness Consult date: 10/10/20 Requesting physician: ANNA DONALD Reason for consult: other (NSTEMI) History of present illness: PCCM CONSULT NOTE (Full dictation # [id number]) Please see dictated notes for full details Past History Past Medical History: hypertension Past Surgical History: appendectomy Social history: smoking (Former Smoker) Family history: CAD (Father had [place] at age 43) Medications and Allergies Allergies Allergy/AdvReac Type Severity Reaction Status Date / Time No Known Allergies Allergy Verified 10/09/20 20:07 Home Medications Medication Instructions Recorded Confirmed Last Taken Type No Known Home Medications [No 10/10/20 10/10/20 Unknown History Reported Home Medications] Active Meds: Active Medications Acetaminophen (Acetaminophen 325 Mg Tab) 650 mg PO Q4H PRN PRN Reason: Pain MILD(1-3)/Fever >100.5/[place] Aspirin (Aspirin Ec 325 Mg Tab) 325 mg PO QDAY [facility] Heparin Sodium (Porcine) (Heparin 10,000 Units/10 Ml Vial) 3,600 unit 40 unit/kg (3600 unit) IV Q6H PRN PRN Reason: Anti-Xa Assay < 0.1 units/ml Hydralazine HCl (Hydralazine 20 Mg/1 Ml Inj) 10 mg IV Q4HR PRN PRN Reason: Blood Pressure Last Admin: 10/10/20 08:56 Dose: 10 mg Documented by: Hydralazine HCl (Hydralazine 25 Mg Tab) 50 mg PO Q8HR [facility] Last Admin: 10/10/20 09:48 Dose: 50 mg Documented by: Heparin Sodium/Sodium Chloride (Heparin/ 0.45% Nacl-25,000 Unit/500 Ml) 25,000 unit in 500 mls @ 20 mls/hr IV TITRATE [facility]; Protocol Last Titration: 10/10/20 08:57 Dose: 1,100 units/hr, 22 mls/hr Documented by: Ceftriaxone Sodium (Rocephin/Ns 2 Gm/100 Ml) 2 gm in 100 mls @ 200 mls/hr IV Q24H [facility]; Protocol Azithromycin (Zithromax/Ns) 500 mg in 250 mls @ 250 mls/hr IV Q24H [facility]; Protocol Isosorbide Mononitrate (Isosorbide Mononitrate Er 30 Mg Tab) 30 mg PO QDAY [facility] Last Admin: 10/10/20 09:49 Dose: 30 mg Documented by: Magnesium Hydroxide (Magnesium Hydroxide (Mom) Oral Liqd Udc) 30 ml PO Q4H PRN PRN Reason: Constipation Metoprolol Tartrate (Metoprolol Tartrate 50 Mg Tab) 50 mg PO BID [facility] Last Admin: 10/10/20 09:48 Dose: 50 mg Documented by: Morphine Sulfate (Morphine 2 Mg/1 Ml Inj) 2 mg IV Q5MIN PRN PRN Reason: Chest Pain unrelieved by NTG Nitroglycerin (Nitroglycerin 0.4 Mg Tab Subl) 0.4 mg SL .Q5MIN PRN PRN Reason: Chest Pain Ondansetron HCl (Ondansetron 4 Mg/2 Ml Inj) 4 mg IV Q8H PRN PRN Reason: Nausea And Vomiting Sodium Chloride (Sodium Chloride 0.9% 10 Ml Flush Syringe) 10 ml IV BID [facility] Last Admin: 10/10/20 09:49 Dose: 10 ml Documented by: Sodium Chloride (Sodium Chloride 0.9% 10 Ml Flush Syringe) 10 ml IV PRN PRN PRN Reason: LINE FLUSH Physical Examination Vital signs: Vital Signs Temp Pulse Resp BP Pulse Ox 98.4 F 126 H 18 241/161 98 10/09/20 20:05 10/09/20 20:05 10/09/20 20:05 10/09/20 20:05 10/09/20 20:05 Results - Laboratory Findings CBC and BMP: 10/09/20 20:18 10/10/20 09:06 PT/INR, D-dimer PT 16.6 Sec. (12.2-14.9) H 10/09/20 20:23 INR 1.34 (0.87-1.13) H 10/09/20 20:23 D-Dimer 610.28 ng/mlDDU (0-234) H 10/10/20 07:34 Abnormal lab findings: Abnormal Labs 10/09/20 10/09/20 10/09/20 20:18 20:18 20:23 RBC 5.55 H Hct 45.8 H MCV 83 L MCH 27 L RDW 15.7 H [place] % (Auto) 9.6 H PT 16.6 H INR 1.34 H D-Dimer Heparin Anti-Xa Level Sodium 130 L Potassium Chloride 94.9 L Carbon Dioxide 21 L BUN 30 H Creatinine 2.6 H Glucose 137 H AST 54 H ALT 84 H Lactate Dehydrogenase Troponin T 0.121 H* C-Reactive Protein NT-Pro-B Natriuret Pep Total Protein 6.1 L Albumin 3.2 L HDL Cholesterol 28 L 10/09/20 10/09/20 10/09/20 20:23 20:25 22:50 RBC Hct MCV MCH RDW [place] % (Auto) PT INR D-Dimer 834.1 H Heparin Anti-Xa Level Sodium Potassium Chloride Carbon Dioxide BUN Creatinine Glucose AST ALT Lactate Dehydrogenase Troponin T 0.129 H* C-Reactive Protein NT-Pro-B Natriuret Pep 10761 H Total Protein Albumin HDL Cholesterol 10/09/20 10/10/20 10/10/20 22:50 02:54 07:34 RBC Hct MCV MCH RDW [place] % (Auto) PT INR D-Dimer 610.28 H Heparin Anti-Xa Level 0.15 L Sodium Potassium Chloride Carbon Dioxide BUN Creatinine Glucose AST ALT Lactate Dehydrogenase 504 H Troponin T 0.103 H* D C-Reactive Protein NT-Pro-B Natriuret Pep Total Protein Albumin HDL Cholesterol 10/10/20 10/10/20 07:34 09:06 RBC Hct MCV MCH RDW [place] % (Auto) PT INR D-Dimer Heparin Anti-Xa Level Sodium 136 L Potassium 3.5 L Chloride Carbon Dioxide BUN 34 H Creatinine 2.6 H Glucose AST ALT Lactate Dehydrogenase 324 H Troponin T 0.084 H C-Reactive Protein 1.40 H NT-Pro-B Natriuret Pep Total Protein Albumin HDL Cholesterol
--- NOTE | 2020-10-10 14:05 | Progress Note ---
<YASMINE MENADenisse - Last Filed: 10/10/20 14:22> Assessment and Plan Assessment and plan: COVID-19 PUI NSTEMI, type II Acute exacerbation of CHF Hypertensive emergency Acute kidney injury Elevated D-dimer Hyponatremia Hypokalemia -Cardiology, infectious disease, nephrology, CCM consulted, appreciate recommendations -Antibiotic therapy -COVID-19 PCR pending -Urine lites pending -Pulmonary hygiene -VQ scan with probability of pulmonary embolism -Left heart cath in the a.m. -Trend CBC and BMP -Renal u/s pending -Antihypertensive regimen: Hydralazine, Imdur, metoprolol DVT/GI prophylaxis: Systemic anticoagulation with heparin drip, PPI, SCDS to BLE while in bed Dispo: Transfer to floor The high probability of a clinically significant, sudden or life threatening deterioration of the [cardio/resp] system(s) required my full and direct attention, intervention and personal management. The aggregate critical care time was [25] minutes. This time is in addition to time spent performing reported procedures but includes the following: [x] Data Review and interpretation [x] Patient assessment and monitoring of vital signs [x] Documentation [x] Medication orders and management History Interval history: This is a 44-year-old with hypertension, noncompliance, former smoker who presented to emergency department on 10/09 with complaints of shortness of breath and left-sided chest pain ongoing for 4 days and associated with nausea/vomiting and abdominal discomfort with occasional productive cough. Patient was found to be in hypertensive urgency and was given IV labetalol in the emergency department. Further work-up revealed elevated troponin, elevated BNP and CXR is compatible with volume overload with possible underlying pneumonia. VQ scan was unremarkable markable. Patient was admitted to the hospital service as a COVID-19 PUI, hypertensive emergency, NSTEMI, CHF, acute hypoxic respiratory failure and started on heparin drip. Cardiology, CCM, infec tious disease and nephrology were consulted. 10/10: Patient was started on Lopressor, hydralazine and Imdur by cardiology and will continue heparin drip for 48 hours. Patient will have a stress test in the a.m. Overnight the patient for BiPAP however at this point in time examination patient was on nasal cannula. Patient had a left heart cath tomorrow. Hospitalist Physical - Constitutional Vitals: Temp Pulse Resp BP Pulse Ox 98.4 F 79 17 144/102 100 10/10/20 11:58 10/10/20 13:00 10/10/20 13:00 10/10/20 13:00 10/10/20 13:00 General appearance: Present: no acute distress, well-nourished - EENT Eyes: Present: PERRL, EOM intact ENT: hearing intact, clear oral mucosa - Neck Neck: Present: supple, normal ROM - Respiratory Respiratory effort: normal Respiratory: bilateral: CTA, diminished - Cardiovascular Rhythm: regular Heart Sounds: Present: S1 & S2. Absent: systolic murmur, diastolic murmur - Extremities Extremities: no ischemia, pulses intact, pulses symmetrical, No edema, normal temperature, normal color Peripheral Pulses: within normal limits - Abdominal General gastrointestinal: soft, non-tender, non-distended - Integumentary Integumentary: Present: warm, dry - Psychiatric Psychiatric: cooperative - Neurologic Neurologic: CNII-XII intact, no focal deficits, moves all extremities - Allied Health Allied health notes reviewed: nursing HEART Score - HEART Score EKG: Normal Age: 45-65 Risk factors: 1-2 risk factors Troponin: Troponin T 0.084 ng/mL (0.00-0.029) H 10/10/20 07:34 Troponin: > 3x normal limit - Critical Actions Critical Actions: 4-6 pts:12-16.6% risk of adverse cardiac event. Should be admitted Results - Labs CBC & Chem 7: 10/09/20 20:18 10/10/20 09:06 Labs: Laboratory Last Values WBC 5.8 K/mm3 (4.5-11.0) 10/09/20 20:18 RBC 5.55 M/mm3 (3.65-5.03) H 10/09/20 20:18 Hgb 14.9 gm/dl (11.8-15.2) 10/09/20 20:18 Hct 45.8 % (35.5-45.6) H 10/09/20 20:18 MCV 83 fl (84-94) L 10/09/20 20:18 MCH 27 pg (28-32) L 10/09/20 20:18 MCHC 33 % (32-34) 10/09/20 20:18 RDW 15.7 % (13.2-15.2) H 10/09/20 20:18 Plt Count 301 K/mm3 (140-440) 10/09/20 20:18 Lymph % (Auto) 29.4 % (13.4-35.0) 10/09/20 20:18 Lane % (Auto) 9.6 % (0.0-7.3) H 10/09/20 20:18 Eos % (Auto) 0.1 % (0.0-4.3) 10/09/20 20:18 Baso % (Auto) 1.5 % (0.0-1.8) 10/09/20 20:18 Lymph # (Auto) 1.7 K/mm3 (1.2-5.4) 10/09/20 20:18 Lane # (Auto) 0.6 K/mm3 (0.0-0.8) 10/09/20 20:18 Eos # (Auto) 0.0 K/mm3 (0.0-0.4) 10/09/20 20:18 Baso # (Auto) 0.1 K/mm3 (0.0-0.1) 10/09/20 20:18 Seg Neutrophils % 59.4 % (40.0-70.0) 10/09/20 20:18 Seg Neutrophils # 3.5 K/mm3 (1.8-7.7) 10/09/20 20:18 PT 16.6 Sec. (12.2-14.9) H 10/09/20 20:23 INR 1.34 (0.87-1.13) H 10/09/20 20:23 D-Dimer 610.28 ng/mlDDU (0-234) H 10/10/20 07:34 Heparin Anti-Xa Level 0.15 U.I./ml (0.3-0.7) L 10/10/20 07:34 Sodium 136 mmol/L (137-145) L 10/10/20 09:06 Potassium 3.5 mmol/L (3.6-5.0) L 10/10/20 09:06 Chloride 98.2 mmol/L (98-107) 10/10/20 09:06 Carbon Dioxide 24 mmol/L (22-30) 10/10/20 09:06 Anion Gap 17 mmol/L 10/10/20 09:06 BUN 34 mg/dL (9-20) H 10/10/20 09:06 Creatinine 2.6 mg/dL (0.8-1.3) H 10/10/20 09:06 Estimated GFR 32 ml/min 10/10/20 09:06 BUN/Creatinine Ratio 13 % 10/10/20 09:06 Glucose 91 mg/dL (75-100) 10/10/20 09:06 Calcium 8.5 mg/dL (8.4-10.2) 10/10/20 09:06 Ferritin 68.4 ng/mL (30.0-300.0) 10/10/20 07:34 Total Bilirubin 0.80 mg/dL (0.1-1.2) 10/09/20 20:18 AST 54 units/L (5-40) H 10/09/20 20:18 ALT 84 units/L (7-56) H 10/09/20 20:18 Alkaline Phosphatase 128 units/L (35-129) 10/09/20 20:18 Lactate Dehydrogenase 324 units/L (91-180) H 10/10/20 07:34 Troponin T 0.084 ng/mL (0.00-0.029) H 10/10/20 07:34 C-Reactive Protein 1.40 mg/dL (0.00-1.30) H 10/10/20 07:34 NT-Pro-B Natriuret Pep 80421 pg/mL (0-450) H 10/09/20 20:25 Total Protein 6.1 g/dL (6.3-8.2) L 10/09/20 20:18 Albumin 3.2 g/dL (3.9-5) L 10/09/20 20:18 Albumin/Globulin Ratio 1.1 % 10/09/20 20:18 Triglycerides 88 mg/dL (2-149) 10/09/20 20:18 Cholesterol 115 mg/dL (50-199) 10/09/20 20:18 LDL Cholesterol Direct 75 mg/dL (50-130) 10/09/20 20:18 HDL Cholesterol 28 mg/dL (40-59) L 10/09/20 20:18 Cholesterol/HDL Ratio 4.10 % 10/09/20 20:18 Lipase 20 units/L (13-60) 10/09/20 20:23 Procalcitonin 0.40 ng/mL (<0.15) 10/10/20 07:34 Urine Color Straw (Yellow) 10/10/20 12:15 Urine Turbidity Clear (Clear) 10/10/20 12:15 Urine pH 7.0 (5.0-7.0) 10/10/20 12:15 Ur Specific [place] 1.006 (1.003-1.030) 10/10/20 12:15 Urine Protein 30 mg/dl mg/dL (Negative) 10/10/20 12:15 Urine Glucose (UA) Neg mg/dL (Negative) 10/10/20 12:15 Urine Ketones Neg mg/dL (Negative) 10/10/20 12:15 Urine Blood Neg (Negative) 10/10/20 12:15 Urine Nitrite Neg (Negative) 10/10/20 12:15 Urine Bilirubin Neg (Negative) 10/10/20 12:15 Urine Urobilinogen < 2.0 mg/dL (<2.0) 10/10/20 12:15 Ur Leukocyte Esterase Neg (Negative) 10/10/20 12:15 Urine WBC (Auto) < 1.0 /HPF (0.0-6.0) 10/10/20 12:15 Urine RBC (Auto) 1.0 /HPF (0.0-6.0) 10/10/20 12:15 Microbiology: Microbiology 10/10/20 00:14 Peripheral/Venous Blood Culture - Preliminary Culture in Progress 10/10/20 00:14 Peripheral/Venous Blood Culture - Preliminary Culture in Progress [place]/IV: Voiding Method Urinal Active Medications - Current Medications Current Medications: Generic Name Dose Route Start Last Admin Trade Name Freq PRN Reason Stop Dose Admin Acetaminophen 650 mg 10/10/20 00:36 Acetaminophen 325 Mg Tab PO Q4H PRN Pain MILD(1-3)/Fever >100.5/CARRASCO Aspirin 325 mg 10/11/20 10:00 Aspirin Ec 325 Mg Tab PO QDAY [facility] Famotidine 20 mg 10/11/20 10:00 Famotidine 20 Mg Tab PO QDAY [facility] Heparin Sodium (Porcine) 3,600 unit 10/09/20 23:47 Heparin 10,000 Units/10 Ml Vial 40 unit/kg (3600 unit) IV Q6H PRN Anti-Xa Assay < 0.1 units/ml Hydralazine HCl 10 mg 10/10/20 05:19 10/10/20 08:56 Hydralazine 20 Mg/1 Ml Inj IV 10 mg Q4HR PRN Administration Blood Pressure Hydralazine HCl 50 mg 10/10/20 10:00 10/10/20 09:48 Hydralazine 25 Mg Tab PO 50 mg Q8HR AMANDA Administration Heparin Sodium/Sodium Chloride 25,000 unit in 500 mls @ 20 mls/hr 10/09/20 23:45 10/10/20 08:57 Heparin/ 0.45% Nacl-25,000 Unit/500 Ml IV 1,100 units/hr TITRATE AMANDA 22 mls/hr Titration Protocol 1,000 UNITS/HR Ceftriaxone Sodium 2 gm in 100 mls @ 200 mls/hr 10/10/20 22:00 Rocephin/Ns 2 Gm/100 Ml IV Q24H [facility] Protocol Azithromycin 500 mg in 250 mls @ 250 mls/hr 10/10/20 22:00 Zithromax/Ns IV Q24H [facility] Protocol Isosorbide Mononitrate 30 mg 10/10/20 10:00 10/10/20 09:49 Isosorbide Mononitrate Er 30 Mg Tab PO 30 mg QDAY [facility] Administration Magnesium Hydroxide 30 ml 10/10/20 00:36 Magnesium Hydroxide (Mom) Oral Liqd Udc PO Q4H PRN Constipation Metoprolol Tartrate 50 mg 10/10/20 10:00 10/10/20 09:48 Metoprolol Tartrate 50 Mg Tab PO 50 mg BID AMANDA Administration Morphine Sulfate 2 mg 10/10/20 00:36 Morphine 2 Mg/1 Ml Inj IV Q5MIN PRN Chest Pain unrelieved by NTG Nitroglycerin 0.4 mg 10/10/20 00:36 Nitroglycerin 0.4 Mg Tab Subl SL .Q5MIN PRN Chest Pain Ondansetron HCl 4 mg 10/10/20 00:36 Ondansetron 4 Mg/2 Ml Inj IV Q8H PRN Nausea And Vomiting Sodium Chloride 10 ml 10/10/20 10:00 10/10/20 09:49 Sodium Chloride 0.9% 10 Ml Flush Syringe IV 10 ml BID AMANDA Administration Sodium Chloride 10 ml 10/10/20 00:36 Sodium Chloride 0.9% 10 Ml Flush Syringe IV PRN PRN LINE FLUSH Nutrition/Malnutrition Assess - Dietary Evaluation Nutrition/Malnutrition Findings: Nutrition Notes Start: 10/10/20 11:28 Freq: Status: Active Protocol: Document 10/10/20 11:28 CW (Rec: 10/10/20 11:38 CW [id number]) Nutrition Notes 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 Pt states being hungry and having a good appetite. Pt did not answer phone for full nutrition assessment. 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 No Is Patient Ambulatory and/or Out of Bed Yes REE-([place]-ambulatory/OOB) [ 2402.569 NUTR.MSJOOB] Calculation Used for Recommendations Kcal/kg Additional Notes protein needs: 47 - 63 (0.6 - 0.8 g/kgIBW) fluid needs: 500 ml + output Nutrition Intervention Change Diet Order: Diet advancement to Cardiac Diet when medically feasible Goal #1 diet advancement Anticipated Discharge Needs: Cardiac Diet Follow-Up By: 10/12/20 Additional Comments F/U for diet advancement and intakes. <ANNA DONALD R - Last Filed: 10/10/20 17:18> Assessment and Plan Assessment and plan: I saw and evaluated the patient. I agree with the findings and the plan of care as documented in the Nurse Practitioner's~note, Hospitalist Physical - Constitutional Vitals: Temp Pulse Resp BP Pulse Ox 98.1 F 88 18 141/88 97 10/10/20 16:00 10/10/20 15:00 10/10/20 15:00 10/10/20 15:00 10/10/20 15:00 HEART Score - HEART Score Troponin: Troponin T 0.084 ng/mL (0.00-0.029) H 10/10/20 07:34 Results - Labs CBC & Chem 7: 10/09/20 20:18 10/10/20 09:06 Labs: Laboratory Last Values WBC 5.8 K/mm3 (4.5-11.0) 10/09/20 20:18 RBC 5.55 M/mm3 (3.65-5.03) H 10/09/20 20:18 Hgb 14.9 gm/dl (11.8-15.2) 10/09/20 20:18 Hct 45.8 % (35.5-45.6) H 10/09/20 20:18 MCV 83 fl (84-94) L 10/09/20 20:18 MCH 27 pg (28-32) L 10/09/20 20:18 MCHC 33 % (32-34) 10/09/20 20:18 RDW 15.7 % (13.2-15.2) H 10/09/20 20:18 Plt Count 301 K/mm3 (140-440) 10/09/20 20:18 Lymph % (Auto) 29.4 % (13.4-35.0) 10/09/20 20:18 Lane % (Auto) 9.6 % (0.0-7.3) H 10/09/20 20:18 Eos % (Auto) 0.1 % (0.0-4.3) 10/09/20 20:18 Baso % (Auto) 1.5 % (0.0-1.8) 10/09/20 20:18 Lymph # (Auto) 1.7 K/mm3 (1.2-5.4) 10/09/20 20:18 Lane # (Auto) 0.6 K/mm3 (0.0-0.8) 10/09/20 20:18 Eos # (Auto) 0.0 K/mm3 (0.0-0.4) 10/09/20 20:18 Baso # (Auto) 0.1 K/mm3 (0.0-0.1) 10/09/20 20:18 Seg Neutrophils % 59.4 % (40.0-70.0) 10/09/20 20:18 Seg Neutrophils # 3.5 K/mm3 (1.8-7.7) 10/09/20 20:18 PT 16.6 Sec. (12.2-14.9) H 10/09/20 20:23 INR 1.34 (0.87-1.13) H 10/09/20 20:23 D-Dimer 610.28 ng/mlDDU (0-234) H 10/10/20 07:34 Heparin Anti-Xa Level < 0.10 U.I./ml (0.3-0.7) L 10/10/20 16:29 Sodium 136 mmol/L (137-145) L 10/10/20 09:06 Potassium 3.5 mmol/L (3.6-5.0) L 10/10/20 09:06 Chloride 98.2 mmol/L (98-107) 10/10/20 09:06 Carbon Dioxide 24 mmol/L (22-30) 10/10/20 09:06 Anion Gap 17 mmol/L 10/10/20 09:06 BUN 34 mg/dL (9-20) H 10/10/20 09:06 Creatinine 2.6 mg/dL (0.8-1.3) H 10/10/20 09:06 Estimated GFR 32 ml/min 10/10/20 09:06 BUN/Creatinine Ratio 13 % 10/10/20 09:06 Glucose 91 mg/dL (75-100) 10/10/20 09:06 Calcium 8.5 mg/dL (8.4-10.2) 10/10/20 09:06 Ferritin 68.4 ng/mL (30.0-300.0) 10/10/20 07:34 Total Bilirubin 0.80 mg/dL (0.1-1.2) 10/09/20 20:18 AST 54 units/L (5-40) H 10/09/20 20:18 ALT 84 units/L (7-56) H 10/09/20 20:18 Alkaline Phosphatase 128 units/L (35-129) 10/09/20 20:18 Lactate Dehydrogenase 324 units/L (91-180) H 10/10/20 07:34 Troponin T 0.084 ng/mL (0.00-0.029) H 10/10/20 07:34 C-Reactive Protein 1.40 mg/dL (0.00-1.30) H 10/10/20 07:34 NT-Pro-B Natriuret Pep 58022 pg/mL (0-450) H 10/09/20 20:25 Total Protein 6.1 g/dL (6.3-8.2) L 10/09/20 20:18 Albumin 3.2 g/dL (3.9-5) L 10/09/20 20:18 Albumin/Globulin Ratio 1.1 % 10/09/20 20:18 Triglycerides 88 mg/dL (2-149) 10/09/20 20:18 Cholesterol 115 mg/dL (50-199) 10/09/20 20:18 LDL Cholesterol Direct 75 mg/dL (50-130) 10/09/20 20:18 HDL Cholesterol 28 mg/dL (40-59) L 10/09/20 20:18 Cholesterol/HDL Ratio 4.10 % 10/09/20 20:18 Lipase 20 units/L (13-60) 10/09/20 20:23 Procalcitonin 0.40 ng/mL (<0.15) 10/10/20 07:34 Urine Color Straw (Yellow) 10/10/20 12:15 Urine Turbidity Clear (Clear) 10/10/20 12:15 Urine pH 7.0 (5.0-7.0) 10/10/20 12:15 Ur Specific [place] 1.006 (1.003-1.030) 10/10/20 12:15 Urine Protein 30 mg/dl mg/dL (Negative) 10/10/20 12:15 Urine Glucose (UA) Neg mg/dL (Negative) 10/10/20 12:15 Urine Ketones Neg mg/dL (Negative) 10/10/20 12:15 Urine Blood Neg (Negative) 10/10/20 12:15 Urine Nitrite Neg (Negative) 10/10/20 12:15 Urine Bilirubin Neg (Negative) 10/10/20 12:15 Urine Urobilinogen < 2.0 mg/dL (<2.0) 10/10/20 12:15 Ur Leukocyte Esterase Neg (Negative) 10/10/20 12:15 Urine WBC (Auto) < 1.0 /HPF (0.0-6.0) 10/10/20 12:15 Urine RBC (Auto) 1.0 /HPF (0.0-6.0) 10/10/20 12:15 Urine Creatinine 28.0 mg/dL (0.1-20.0) H 10/10/20 12:15 Urine Sodium 101 mmol/L 10/10/20 12:15 Coronavirus (PCR) Negative (Negative) 10/10/20 09:10 Microbiology: Microbiology 10/10/20 00:14 Peripheral/Venous Blood Culture - Preliminary Culture in Progress 10/10/20 00:14 Peripheral/Venous Blood Culture - Preliminary Culture in Progress [place]/IV: Voiding Method Urinal Active Medications - Current Medications Current Medications: Generic Name Dose Route Start Last Admin Trade Name Freq PRN Reason Stop Dose Admin Acetaminophen 650 mg 10/10/20 00:36 Acetaminophen 325 Mg Tab PO Q4H PRN Pain MILD(1-3)/Fever >100.5/[place] Aspirin 325 mg 10/11/20 10:00 Aspirin Ec 325 Mg Tab PO QDAY AMANDA Famotidine 20 mg 10/11/20 10:00 Famotidine 20 Mg Tab PO QDAY [facility] Heparin Sodium (Porcine) 3,600 unit 10/09/20 23:47 Heparin 10,000 Units/10 Ml Vial 40 unit/kg (3600 unit) IV Q6H PRN Anti-Xa Assay < 0.1 units/ml Hydralazine HCl 10 mg 10/10/20 05:19 10/10/20 08:56 Hydralazine 20 Mg/1 Ml Inj IV 10 mg Q4HR PRN Administration Blood Pressure Hydralazine HCl 50 mg 10/10/20 10:00 10/10/20 14:04 Hydralazine 25 Mg Tab PO 50 mg Q8HR AMANDA Administration Heparin Sodium/Sodium Chloride 25,000 unit in 500 mls @ 20 mls/hr 10/09/20 23:45 10/10/20 08:57 Heparin/ 0.45% Nacl-25,000 Unit/500 Ml IV 1,100 units/hr TITRATE AMANDA 22 mls/hr Titration Protocol 1,000 UNITS/HR Ceftriaxone Sodium 2 gm in 100 mls @ 200 mls/hr 10/10/20 22:00 Rocephin/Ns 2 Gm/100 Ml IV Q24H [facility] Protocol Azithromycin 500 mg in 250 mls @ 250 mls/hr 10/10/20 22:00 Zithromax/Ns IV Q24H [facility] Protocol Isosorbide Mononitrate 30 mg 10/10/20 10:00 10/10/20 09:49 Isosorbide Mononitrate Er 30 Mg Tab PO 30 mg QDAY AMANDA Administration Magnesium Hydroxide 30 ml 10/10/20 00:36 Magnesium Hydroxide (Mom) Oral Liqd Udc PO Q4H PRN Constipation Metoprolol Tartrate 50 mg 10/10/20 10:00 10/10/20 09:48 Metoprolol Tartrate 50 Mg Tab PO 50 mg BID AMANDA Administration Morphine Sulfate 2 mg 10/10/20 00:36 Morphine 2 Mg/1 Ml Inj IV Q5MIN PRN Chest Pain unrelieved by NTG Nitroglycerin 0.4 mg 10/10/20 00:36 Nitroglycerin 0.4 Mg Tab Subl SL .Q5MIN PRN Chest Pain Ondansetron HCl 4 mg 10/10/20 00:36 Ondansetron 4 Mg/2 Ml Inj IV Q8H PRN Nausea And Vomiting Sodium Chloride 10 ml 10/10/20 10:00 10/10/20 09:49 Sodium Chloride 0.9% 10 Ml Flush Syringe IV 10 ml BID AMANDA Administration Sodium Chloride 10 ml 10/10/20 00:36 Sodium Chloride 0.9% 10 Ml Flush Syringe IV PRN PRN LINE FLUSH Nutrition/Malnutrition Assess - Dietary Evaluation Nutrition/Malnutrition Findings: Nutrition Notes Start: 10/10/20 11:28 Freq: Status: Active Protocol: Document 10/10/20 11:28 CW (Rec: 10/10/20 11:38 CW [id number]) Nutrition Notes 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 Pt states being hungry and having a good appetite. Pt did not answer phone for full nutrition assessment. 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 No Is Patient Ambulatory and/or Out of Bed Yes REE-([place]-ambulatory/OOB) [ 2402.569 NUTR.MSJOOB] Calculation Used for Recommendations Kcal/kg Additional Notes protein needs: 47 - 63 (0.6 - 0.8 g/kgIBW) fluid needs: 500 ml + output Nutrition Intervention Change Diet Order: Diet advancement to Cardiac Diet when medically feasible Goal #1 diet advancement Anticipated Discharge Needs: Cardiac Diet Follow-Up By: 10/12/20 Additional Comments F/U for diet advancement and intakes.
--- NOTE | 2020-10-10 15:39 | Consultation ---
History of Present Illness - Reason for Consult Consult date: 10/10/20 - History of Present Illness 44-year-old male past medical history hypertension presented to hospital complaining of shortness of breath left-sided chest pain. This began approximate 4 days prior to admission and was worsening since onset. He also complains of associated nausea and abdominal discomfort. He complains of cough as well. Afebrile since admission with a white count 5.8. Covid negative. Calcitonin mildly elevated at 0.4. Renal function decreased, EGFR 32. Cultures no growth so far currently on ceftriaxone and azithromycin. Currently on BiPAP. Imaging personally viewed: Chest x-ray: Possible mild right pneumonia, volume overload. Review of systems: Unable to obtain due to BiPAP Past History Past Medical History: hypertension Past Surgical History: appendectomy Social history: smoking (Former Smoker) Family history: CAD (Father had NC at age 43) Medications and Allergies Allergies Allergy/AdvReac Type Severity Reaction Status Date / Time No Known Allergies Allergy Verified 10/09/20 20:07 Home Medications Medication Instructions Recorded Confirmed Last Taken Type No Known Home Medications [No 10/10/20 10/10/20 Unknown History Reported Home Medications] Active Meds: Active Medications Acetaminophen (Acetaminophen 325 Mg Tab) 650 mg PO Q4H PRN PRN Reason: Pain MILD(1-3)/Fever >100.5/[place]AS[place] Aspirin (Aspirin Ec 325 Mg Tab) 325 mg PO QDAY AMANDA Famotidine (Famotidine 20 Mg Tab) 20 mg PO QDAY AMANDA Heparin Sodium (Porcine) (Heparin 10,000 Units/10 Ml Vial) 3,600 unit 40 unit/kg (3600 unit) IV Q6H PRN PRN Reason: Anti-Xa Assay < 0.1 units/ml Hydralazine HCl (Hydralazine 20 Mg/1 Ml Inj) 10 mg IV Q4HR PRN PRN Reason: Blood Pressure Last Admin: 10/10/20 08:56 Dose: 10 mg Documented by: Hydralazine HCl (Hydralazine 25 Mg Tab) 50 mg PO Q8HR AMANDA Last Admin: 10/10/20 14:04 Dose: 50 mg Documented by: Heparin Sodium/Sodium Chloride (Heparin/ 0.45% Nacl-25,000 Unit/500 Ml) 25,000 unit in 500 mls @ 20 mls/hr IV TITRATE AMANDA; Protocol Last Titration: 10/10/20 08:57 Dose: 1,100 units/hr, 22 mls/hr Documented by: Ceftriaxone Sodium (Rocephin/Ns 2 Gm/100 Ml) 2 gm in 100 mls @ 200 mls/hr IV Q24H COUNTS INCLUDE 234 BEDS AT THE [facility]; Protocol Azithromycin (Zithromax/Ns) 500 mg in 250 mls @ 250 mls/hr IV Q24H COUNTS INCLUDE 234 BEDS AT THE [facility]; Protocol Isosorbide Mononitrate (Isosorbide Mononitrate Er 30 Mg Tab) 30 mg PO QDAY COUNTS INCLUDE 234 BEDS AT THE [facility] Last Admin: 10/10/20 09:49 Dose: 30 mg Documented by: Magnesium Hydroxide (Magnesium Hydroxide (Mom) Oral Liqd Udc) 30 ml PO Q4H PRN PRN Reason: Constipation Metoprolol Tartrate (Metoprolol Tartrate 50 Mg Tab) 50 mg PO BID COUNTS INCLUDE 234 BEDS AT THE [facility] Last Admin: 10/10/20 09:48 Dose: 50 mg Documented by: Morphine Sulfate (Morphine 2 Mg/1 Ml Inj) 2 mg IV Q5MIN PRN PRN Reason: Chest Pain unrelieved by NTG Nitroglycerin (Nitroglycerin 0.4 Mg Tab Subl) 0.4 mg SL .Q5MIN PRN PRN Reason: Chest Pain Ondansetron HCl (Ondansetron 4 Mg/2 Ml Inj) 4 mg IV Q8H PRN PRN Reason: Nausea And Vomiting Sodium Chloride (Sodium Chloride 0.9% 10 Ml Flush Syringe) 10 ml IV BID COUNTS INCLUDE 234 BEDS AT THE [facility] Last Admin: 10/10/20 09:49 Dose: 10 ml Documented by: Sodium Chloride (Sodium Chloride 0.9% 10 Ml Flush Syringe) 10 ml IV PRN PRN PRN Reason: LINE FLUSH Physical Examination - Physical Exam Narrative exam: Physical Exam: Constitutional: Alert, cooperative. Mild distress, on BiPAP. Head, Ears, Nose: Normocephalic, atraumatic. External ears, nose normal Eyes: Conjunctivae/corneas clear. No icterus. No ptosis. Neck: Supple, no meningeal signs Oral: dentition fair, no thrush Cardiovascular: S1, S2 normal. Respiratory: Good air entry, clear to auscultation bilaterally GI: Soft, non-tender; bowel sounds normal. No peritoneal signs. Musculoskeletal: No pedal edema, no cyanosis. Skin: No rash or abscess Hem/Lymphatic: No palpable cervical or supraclavicular nodes. No lymphangitis Psych: Mood ok. Affect normal Neurological: Awake, alert, oriented. No gross abnormality - Constitutional Vitals: Vital Signs Temp Pulse Resp BP Pulse Ox 98.4 F 88 18 141/88 97 10/10/20 11:58 10/10/20 15:00 10/10/20 15:00 10/10/20 15:00 10/10/20 15:00 Temperature -Last 24 Hours Temperature 98.4 F Temperature 98.2 F Temperature 97.7 F Temperature 98.2 F Temperature 98.4 F Results - Labs CBC & Chem 7: 10/09/20 20:18 10/10/20 09:06 Labs: Abnormal lab results 10/09/20 10/09/20 10/09/20 Range/Units 20:18 20:18 20:23 RBC 5.55 H (3.65-5.03) M/mm3 Hct 45.8 H (35.5-45.6) % MCV 83 L (84-94) fl MCH 27 L (28-32) pg RDW 15.7 H (13.2-15.2) % Mcmullen % (Auto) 9.6 H (0.0-7.3) % PT 16.6 H (12.2-14.9) Sec. INR 1.34 H (0.87-1.13) D-Dimer (0-234) ng/mlDDU Heparin Anti-Xa Level (0.3-0.7) U.I./ml Sodium 130 L (137-145) mmol/L Potassium (3.6-5.0) mmol/L Chloride 94.9 L (98-107) mmol/L Carbon Dioxide 21 L (22-30) mmol/L BUN 30 H (9-20) mg/dL Creatinine 2.6 H (0.8-1.3) mg/dL Glucose 137 H (75-100) mg/dL AST 54 H (5-40) units/L ALT 84 H (7-56) units/L Lactate Dehydrogenase (91-180) units/L Troponin T 0.121 H* (0.00-0.029) ng/mL C-Reactive Protein (0.00-1.30) mg/dL NT-Pro-B Natriuret Pep (0-450) pg/mL Total Protein 6.1 L (6.3-8.2) g/dL Albumin 3.2 L (3.9-5) g/dL HDL Cholesterol 28 L (40-59) mg/dL Urine Creatinine (0.1-20.0) mg/dL 10/09/20 10/09/20 10/09/20 Range/Units 20:23 20:25 22:50 RBC (3.65-5.03) M/mm3 Hct (35.5-45.6) % MCV (84-94) fl MCH (28-32) pg RDW (13.2-15.2) % Mcmullen % (Auto) (0.0-7.3) % PT (12.2-14.9) Sec. INR (0.87-1.13) D-Dimer 834.1 H (0-234) ng/mlDDU Heparin Anti-Xa Level (0.3-0.7) U.I./ml Sodium (137-145) mmol/L Potassium (3.6-5.0) mmol/L Chloride (98-107) mmol/L Carbon Dioxide (22-30) mmol/L BUN (9-20) mg/dL Creatinine (0.8-1.3) mg/dL Glucose (75-100) mg/dL AST (5-40) units/L ALT (7-56) units/L Lactate Dehydrogenase (91-180) units/L Troponin T 0.129 H* (0.00-0.029) ng/mL C-Reactive Protein (0.00-1.30) mg/dL NT-Pro-B Natriuret Pep 39872 H (0-450) pg/mL Total Protein (6.3-8.2) g/dL Albumin (3.9-5) g/dL HDL Cholesterol (40-59) mg/dL Urine Creatinine (0.1-20.0) mg/dL 10/09/20 10/10/20 10/10/20 Range/Units 22:50 02:54 07:34 RBC (3.65-5.03) M/mm3 Hct (35.5-45.6) % MCV (84-94) fl MCH (28-32) pg RDW (13.2-15.2) % Mcmullen % (Auto) (0.0-7.3) % PT (12.2-14.9) Sec. INR (0.87-1.13) D-Dimer 610.28 H (0-234) ng/mlDDU Heparin Anti-Xa Level 0.15 L (0.3-0.7) U.I./ml Sodium (137-145) mmol/L Potassium (3.6-5.0) mmol/L Chloride (98-107) mmol/L Carbon Dioxide (22-30) mmol/L BUN (9-20) mg/dL Creatinine (0.8-1.3) mg/dL Glucose (75-100) mg/dL AST (5-40) units/L ALT (7-56) units/L Lactate Dehydrogenase 504 H (91-180) units/L Troponin T 0.103 H* D (0.00-0.029) ng/mL C-Reactive Protein (0.00-1.30) mg/dL NT-Pro-B Natriuret Pep (0-450) pg/mL Total Protein (6.3-8.2) g/dL Albumin (3.9-5) g/dL HDL Cholesterol (40-59) mg/dL Urine Creatinine (0.1-20.0) mg/dL 10/10/20 10/10/20 10/10/20 Range/Units 07:34 09:06 12:15 RBC (3.65-5.03) M/mm3 Hct (35.5-45.6) % MCV (84-94) fl MCH (28-32) pg RDW (13.2-15.2) % Mcmullen % (Auto) (0.0-7.3) % PT (12.2-14.9) Sec. INR (0.87-1.13) D-Dimer (0-234) ng/mlDDU Heparin Anti-Xa Level (0.3-0.7) U.I./ml Sodium 136 L (137-145) mmol/L Potassium 3.5 L (3.6-5.0) mmol/L Chloride (98-107) mmol/L Carbon Dioxide (22-30) mmol/L BUN 34 H (9-20) mg/dL Creatinine 2.6 H (0.8-1.3) mg/dL Glucose (75-100) mg/dL AST (5-40) units/L ALT (7-56) units/L Lactate Dehydrogenase 324 H (91-180) units/L Troponin T 0.084 H (0.00-0.029) ng/mL C-Reactive Protein 1.40 H (0.00-1.30) mg/dL NT-Pro-B Natriuret Pep (0-450) pg/mL Total Protein (6.3-8.2) g/dL Albumin (3.9-5) g/dL HDL Cholesterol (40-59) mg/dL Urine Creatinine 28.0 H (0.1-20.0) mg/dL Assessment and Plan Cultures: Blood culture 10/10/2020 no growth so far. A/P: 44-year-old man past medical history hypertension admitted with NSTEMI acute hypoxic respiratory failure. #Acute hypoxic respiratory failure: With small possible right pneumonia, fluid overload in the setting of NSTEMI and renal failure. Covid negative. #Right-sided pneumonia: Elevated procalcitonin in the setting of renal failure which is not specific. #PRIETO: Renally dose medications. #NSTEMI: Management per cardiology and primary. Recs: -Continue ceftriaxone and azithromycin for now. If discharging prior to completion would send with Omnicef 300 mg every 12 hours to complete 5 total days. Thank you for the consult, we will continue to follow. MD Melva [facility] ([facility]) O: [phone] F: [phone]
[2020-10-10] MEDS: cefTRIAXone/NS 2 GM/100 ML 2 GM/100 ML BAG IV SCH (21:46)
[2020-10-10] MEDS: AZITHROMYCIN/NS 500 MG/250 ML 500 MG/250 ML BAG IV SCH (21:46)
[2020-10-11] MEDS: HEPARIN/ 0.45% NACL DRIP 25,000 UNIT/500 ML BAG IV SCH ×2 (01:24→07:28)
--- NOTE | 2020-10-11 01:27 | Consultation ---
PULMONARY CRITICAL CARE CONSULT NOTE CONSULTING PHYSICIAN: Dr. Shirley. REASON FOR CONSULTATION: Acute coronary syndrome, non-ST elevation myocardial infarction. CHIEF COMPLAINT AND HISTORY OF PRESENT ILLNESS: The patient is a 44-year-old male with past medical history significant amongst other things for a diagnosis of hypertension, came into the Emergency Room yesterday complaining of shortness of breath, left-sided chest pain. Symptoms had been going on for about 3-4 days. He also had associated nausea and vomiting, abdominal discomfort. He had an intermittent cough, which was productive of whitish phlegm. He denied gross or streaky hemoptysis. He thought he was having abdominal cramps, but did not resolve. As a result of the persistent nausea and vomiting and feeling sick he came into the Emergency Room. He does also admit to about a 20+ pack year tobacco smoking history. He mentioned he has cut it down to about half a pack per day. In the Emergency Room, he was found to have systolic blood pressures in the 200s, diastolics in the 160s and the workup revealed elevated troponin, elevated BNP. A V/Q scan was done; actually it was reported as a normal perfusion scan. He was started on antiplatelet therapy; Cardiology consults were placed. He was admitted as a hypertensive emergency and transferred to the Intensive Care Unit where I stopped by to see him. When I stopped by to see him, he was resting in bed, feeling much better, about to eat lunch. Denied nausea or vomiting. Denied fevers or chills. Denied any chest pain. This really is as much of the history of presentation as I have. I should also mention he had denied any leg pain or swelling either unilaterally or bilaterally or any suggestion of deep venous thrombosis. PAST MEDICAL HISTORY: Again, significant for hypertension. PAST SURGICAL HISTORY: He has had an appendectomy in the past. MEDICATIONS: He was on at the time I stopped by to see him were reviewed, pertinent medications include the following: Tylenol 650 mg p.o. q. 4 hours p.r.n. mild pain or fevers, aspirin 325 mg p.o. daily, Zithromax 500 mg IV daily, Rocephin 2 g IV daily, Pepcid 20 mg p.o. daily, heparin drip was going on titrated at a baseline of 1000 units per hour, hydralazine 10 mg IV q. 4 hours p.r.n. elevated blood pressure. He had been started on hydralazine 50 mg p.o. q. 8 hours, Imdur 30 mg p.o. daily, metoprolol 50 mg p.o. b.i.d., sublingual nitroglycerin 0.4 mg every 5 minutes p.r.n. chest pain, Zofran 4 mg IV q. 8 hours p.r.n. nausea and vomiting. ALLERGIES: No known drug allergies. DIET: Thin gentleman. Denies acute weight loss or gain in the preceding few weeks to months. FAMILY AND SOCIAL HISTORY: Lives in the community, he has a [id number] tobacco smoking history. Denies alcohol or illicit drug use or abuse. There is a history of coronary artery disease in his father who had myocardial infarction at the age of 43. REVIEW OF SYSTEMS: No loss of consciousness. No new-onset seizures. No new onset focal weakness. Denies gross hematochezia or melena. No hematuria, no dysuria. Denies heat or cold intolerance. Denies polydipsia or polyuria. Complete 13-system review of systems was obtained. Pertinent positives and/or negatives as in body of history above, otherwise noncontributory. PHYSICAL EXAMINATION: VITAL SIGNS: At presentation, he was afebrile, temperature 98.4 degrees Fahrenheit, pulse of 126, respiratory rate of 18, blood pressure 241/161, O2 sats were 98%, inspired oxygen concentration at that time was not recorded. When I saw him, O2 sats were 99% on 4 liters nasal cannula. GENERAL: Again, he is a middle-aged male, normocephalic, atraumatic, talking to me in full sentences with mildly increased respiratory effort at rest. HEAD, EYES, EARS, NOSE AND THROAT: Anicteric. No conjunctival erythema. Oropharynx was moist. No gross jugular venous distention, no thyromegaly. NECK: Grossly, there were no palpable lymph nodes in the supraclavicular or submandibular lymph node chains. LUNGS: Auscultation of both lung toscano unremarkable. Most slightly diminished bilateral breath sounds. He had faint basilar crackles actually inspiratory crackles, no wheezing. HEART: Heart sounds 1 and 2 are heard at the time of my evaluation, regular rate and rhythm without overt rubs or murmurs. ABDOMEN: Soft, flat. Bowel sounds are positive, nontender, no palpable hepatosplenomegaly. EXTREMITIES: Without overt digital clubbing, no cyanosis, no pedal edema. Pedal pulses are 2+ bilaterally. NEUROLOGIC: Pupils are equal, round, about 4 mm, reactive to light. Extraocular muscle movements are intact. He moves all 4 extremities spontaneously. SKIN: Normal turgor in the areas examined without overt cellulitis or rash. Please see the wound care nurse's notes for full description of his skin. PSYCHIATRIC: Mood was normal. Affect was appropriate. He had intact judgment and insight. LABORATORY DATA: From my review, admission white cell count 5800, hemoglobin 14.9, hematocrit 45.8, platelet count 301. INR was 1.31. D-dimer was up at 831. Serum sodium 130, potassium 4.0, chloride 95, bicarbonate 21, BUN 30, creatinine 2.6, glucose 137, AST was up at 54, ALT 84. LDH 504. Troponin 0.129 at presentation. BNP was 334,843. LDL cholesterol was 75. Urinalysis negative for nitrites and leukocyte esterase. Urine electrolytes, urine creatinine 28, urine sodium 101. Two sets of blood cultures, no growth to date. Chest x-ray has been reviewed. Main findings gross cardiomegaly, small to moderate right pleural effusion and a small left pleural effusion, no gross pneumothorax, no gross bony fracture that I could see. ASSESSMENT: 1. Acute coronary syndrome, non-ST elevation myocardial infarction. 2. Hypertensive emergency. 3. Possible flash pulmonary edema. 4. Acute exacerbation of congestive heart failure. 5. Acute kidney injury, possibly on chronic. 6. Person under investigation for COVID-19 infection. 7. Elevated serum transaminases. 8. Hyponatremia. PLAN: Appropriately he is being evaluated for possible COVID-19 infection. He is on airborne and contact precautions. We will hold on beginning empiric COVID therapies, otherwise he will remain on the IV heparin therapy. I will defer to the counselor dormitory in terms of antiplatelet therapy secondary prevention. I will definitely be following that 2D echocardiogram to see what his ejection fraction is. An ultrasound is going to be gotten of the right pleural effusion and I will go ahead and order an ultrasound-guided thoracentesis, send fluid for necessary studies in particular, he is also a significant smoker. It will also improve his oxygenation and recruit some alveoli. Glycemic control will be for target blood glucose at this point of less than 180 mg/dL. We will complete 5 days of empiric community-acquired pneumonia therapy, although the procalcitonin level is really unremarkable. Nephrology evaluation is ongoing. I will defer to them. He is nonoliguric at this time. Tobacco abstinence has been strongly counseled. I spent well over almost 10 minutes discussing this with him at bedside. He is again fully anticoagulated. He is also on GI prophylaxis. Flu and pneumonia vaccination will be addressed per protocol. Thank you very much for the consult. We will follow along and make further recommendations as picture progresses/becomes clearer. JOB# [id number] BOO/RAEGAN DICKENS
[2020-10-11 06:01] LABS: Basophils # (Auto) 0.1 K/mm3 (0.0-0.1); Basophils % (Auto) 1.2 % (0.0-1.8); Eosinophils % (Auto) 0.2 % (0.0-4.3); Hematocrit 40.7 % (35.5-45.6); Hemoglobin 13.6 gm/dl (11.8-15.2); Lymphocytes % (Auto) 32.2 % (13.4-35.0); Mean Corpuscular HGB Conc 33 % (32-34); Mean Corpuscular Volume 82 fl (84-94); Monocytes # (Auto) 0.7 K/mm3 (0.0-0.8); Monocytes % (Auto) 11.1 % (0.0-7.3); Platelet Count 243 K/mm3 (140-440); Red Blood Count 4.94 M/mm3 (3.65-5.03); Red Cell Distribution Width 16.1 % (13.2-15.2)
[2020-10-11 06:12] LABS: INR 1.3 (0.87-1.13)
[2020-10-11 06:20] LABS: Calcium 8.6 mg/dL (8.4-10.2)
[2020-10-11] MEDS: hydrALAZINE 20 MG/1 ML INJ IV PRN ×2 (06:33→21:48)
[2020-10-11] MEDS: hydrALAZINE 25 MG TAB PO SCH (06:33)
[2020-10-11] MEDS ORDERED: REGADENOSON 0.4 MG/5 ML INJ IV ONE (07:43)
--- NOTE | 2020-10-11 09:58 | Progress Note ---
Assessment and Plan 1. CKD vs Acute kidney injury: PRIETO superimposed on CKD UA trace protein. Renal US ordered. Monitor renal function. Creatinine leveled off. Avoid nephrotoxic agents. Meds dosage based on GFR. 2. FEN: Hyponatremia, monitor. Resume Lasix for control volume. Monitor lytes and volume status. 3. Acute hypoxic respiratory failure, POA: 2/2 PNA and CHF. COVID test negative. On NC O2. 4. NSTEMI type II: Followed by Cards. 5. CHF: EF 10-15%. 6. Uncontrolled HTN: 2/2 non-compliance. Started on Lasix. Monitor BP and adjust meds as needed. 7. Elevated Transaminases: Monitor. Subjective: Patient was seen and examined at the bedside. No new complaint. Objective: General appearance: well-developed, appears stated age, slight resp distress HEENT: ATNC, pupils equal Neck: trachea midline Respiratory: faint rales heard Heart: regular, S1S2, no murmur Gastrointestinal: soft, normoactive bowel sounds, not tender Integumentary: no rash, warm and dry Ext: no edema Neurologic: AO, able to move extremities Musculoskeletal: no obvious deformity Subjective Date of service: 10/11/20 Objective - Vital Signs Vital signs: Vital Signs - 12hr 10/10/20 10/10/20 10/11/20 23:12 23:48 00:00 Temperature 97.3 F L Pulse Rate 94 H 94 H Pulse Rate [ 80 From Monitor] Respiratory 16 16 Rate Blood Pressure 148/115 O2 Sat by Pulse 100 99 Oximetry 10/11/20 10/11/20 10/11/20 03:29 03:56 04:55 Temperature 98.5 F Pulse Rate 91 H 94 H 91 H Pulse Rate [ From Monitor] Respiratory 17 14 Rate Blood Pressure 182/131 163/120 O2 Sat by Pulse 100 100 Oximetry 10/11/20 06:33 Temperature Pulse Rate 94 H Pulse Rate [ From Monitor] Respiratory Rate Blood Pressure 163/120 O2 Sat by Pulse Oximetry - Lab 10/11/20 05:12 10/11/20 05:12 Most recent lab results Calcium 8.6 mg/dL (8.4-10.2) 10/11/20 05:12 Magnesium 1.80 mg/dL (1.7-2.3) 10/11/20 05:12 Urine Creatinine 28.0 mg/dL (0.1-20.0) H 10/10/20 12:15 Urine Sodium 101 mmol/L 10/10/20 12:15 Medications & Allergies - Medications Allergies/Adverse Reactions: Allergies No Known Allergies Allergy (Verified 10/09/20 20:07) Home Medications: Home Medications Medication Instructions Recorded Confirmed Last Taken Type No Known Home Medications [No 10/10/20 10/10/20 Unknown History Reported Home Medications] Active Medications: Generic Name Dose Route Start Last Admin Trade Name Freq PRN Reason Stop Dose Admin Acetaminophen 650 mg 10/10/20 00:36 Acetaminophen 325 Mg Tab PO Q4H PRN Pain MILD(1-3)/Fever >100.5/C[place]ASCO Aspirin 325 mg 10/11/20 10:00 Aspirin Ec 325 Mg Tab PO QDAY [facility] Famotidine 20 mg 10/11/20 10:00 Famotidine 20 Mg Tab PO QDAY [facility] Heparin Sodium (Porcine) 3,600 unit 10/09/20 23:47 10/10/20 17:28 Heparin 10,000 Units/10 Ml Vial 40 unit/kg (3600 unit) 3,600 unit IV Administration Q6H PRN Anti-Xa Assay < 0.1 units/ml Hydralazine HCl 10 mg 10/10/20 05:19 10/11/20 06:33 Hydralazine 20 Mg/1 Ml Inj IV 10 mg Q4HR PRN Administration Blood Pressure Hydralazine HCl 100 mg 10/11/20 22:00 Hydralazine 100 Mg Tab PO Q12HR [facility] Hydralazine HCl 50 mg 10/11/20 10:00 Hydralazine 25 Mg Tab PO 10/11/20 14:00 ONCE AMANDA Heparin Sodium/Sodium Chloride 25,000 unit in 500 mls @ 20 mls/hr 10/09/20 23:45 10/11/20 07:28 Heparin/ 0.45% Nacl-25,000 Unit/500 Ml IV 1,350 units/hr TITRATE AMANDA 27 mls/hr Administration Protocol 1,000 UNITS/HR Ceftriaxone Sodium 2 gm in 100 mls @ 200 mls/hr 10/10/20 22:00 10/10/20 21:46 Rocephin/Ns 2 Gm/100 Ml IV 200 mls/hr Q24H AMANDA Administration Protocol Azithromycin 500 mg in 250 mls @ 250 mls/hr 10/10/20 22:00 10/10/20 21:46 Zithromax/Ns IV 250 mls/hr Q24H AMANDA Administration Protocol Isosorbide Mononitrate 30 mg 10/10/20 10:00 10/10/20 09:49 Isosorbide Mononitrate Er 30 Mg Tab PO 30 mg QDAY AMANDA Administration Magnesium Hydroxide 30 ml 10/10/20 00:36 Magnesium Hydroxide (Mom) Oral Liqd Udc PO Q4H PRN Constipation Metoprolol Tartrate 50 mg 10/10/20 10:00 10/10/20 21:45 Metoprolol Tartrate 50 Mg Tab PO 50 mg BID AMANDA Administration Morphine Sulfate 2 mg 10/10/20 00:36 Morphine 2 Mg/1 Ml Inj IV Q5MIN PRN Chest Pain unrelieved by NTG Nitroglycerin 0.4 mg 10/10/20 00:36 Nitroglycerin 0.4 Mg Tab Subl SL .Q5MIN PRN Chest Pain Ondansetron HCl 4 mg 10/10/20 00:36 Ondansetron 4 Mg/2 Ml Inj IV Q8H PRN Nausea And Vomiting Sodium Chloride 10 ml 10/10/20 10:00 10/10/20 21:45 Sodium Chloride 0.9% 10 Ml Flush Syringe IV 10 ml BID AMANDA Administration Sodium Chloride 10 ml 10/10/20 00:36 10/11/20 06:34 Sodium Chloride 0.9% 10 Ml Flush Syringe IV 10 ml PRN PRN Administration LINE FLUSH
[2020-10-11] MEDS ORDERED: hydrALAZINE 25 MG TAB PO SCH ×2 (10:00)
--- NOTE | 2020-10-11 11:15 | Nuclear Medicine Report ---
APPROVED REPORT Exam: Nuclear Stress Test Indication: Chest pain BMI: 0 Stress Test Details HR Max Heart Rate (APMHR): 174 bpm Target HR (85% APMHR): 147 bpm BP ECG Clinical Reason for Termination: Completed protocol NM EXAM: Myocardial Perfusion REST/STRESS Imaging Protocol: Rest Tc-99m/Stress Tc-99m 1 day Resting Data Rest SPECT myocardial perfusion imaging was performed in supine position 45 minutes following the intravenous injection of 10 mCi of Tc-99m Myoview. Time of rest injection: 0715 Pharmacologic Stress Pharmacologic stress test was performed by injecting Regadenoson 0.4 mg IV push followed by the intravenous injection of 28 mCi of Tc-99m Myoview. Time of stress injection: 0854 Gated Stress SPECT was performed 30 minutes after stress injection. The images were gated to evaluate regional wall motion and calculate left ventricular ejection fraction. Study Quality Study: excellent Lung Uptake: Normal Study Data TID = 1.07. Perfusion Wall Motion severe lv dsyfunction ef 17% Nuclear Conclusion negative lexiscan ekg No scintigraphic evidence for myocardial ischemia or scar.dilated lv in stress and rest, normal perfusion, severe lv dsfyunction ef 17% suggestive non ischemic cardiomyopathy
--- NOTE | 2020-10-11 11:33 | Electrocardiograph Report ---
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
--- NOTE | 2020-10-11 11:39 | Electrocardiograph Report ---
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
--- NOTE | 2020-10-11 11:42 | Electrocardiograph Report ---
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
--- NOTE | 2020-10-11 12:21 | Progress Note ---
Assessment and Plan Tele reviewed: SR 98. No events. Echo (10/10/2020) reviewed: EF 10-15%. LV severe global hypokinesis, severe LVH, LVSF indeterminant. RV mildly hypokinetic. RA mildly dilated. Mild MR. Mod TR. Pamelaan (10/11/2020) reviewed: negative for ischemia. Optimize cardiac regimen in setting of NICMP: Increase Metoprolol to 100mg PO BID, Hydralazine to 100mg PO BID. No ACEI/ARB in setting of PRIETO. Pt appears to be at/near euvolemia. Continue PO diuresis per nephrology. Currently stable cardiac status. Pt may discharge from cardiology standpoint. Pt should f/u with Dr Lorenz in our [place] office on 10/29/2020 at 1:15pm. This pt was seen in conjunction with Dr Lorenz who agrees with this assessment and plan of care. - Patient Problems (1) Hypertension Current Visit: Yes Status: Acute (2) Accelerated hypertension Current Visit: Yes Status: Acute (3) Acute renal failure Current Visit: Yes Status: Acute Qualifiers: Acute renal failure type: unspecified Qualified Code(s): N17.9 - Acute kidney failure, unspecified (4) NSTEMI (non-ST elevated myocardial infarction) Current Visit: Yes Status: Acute Plan to address problem: type 2 (5) Cardiomyopathy Current Visit: Yes Status: Acute (6) HFrEF Current Visit: Yes Status: Acute Subjective Date of service: 10/11/20 Principal diagnosis: Chest Pain, NSTEMI Interval history: Pt seen in stress lab where he is resting comfortably in bed. No CP or SOB overnight. Tele reviewed: SR 98. No events. Objective Last Vital Signs Temp 98.5 F 10/11/20 03:29 Pulse 94 H 10/11/20 06:33 Resp 14 10/11/20 03:56 BP 163/120 10/11/20 06:33 Pulse Ox 100 10/11/20 03:56 - Physical Examination General: Appears Well HEENT: Positive: PERRL, Normocephaly, Mucus Membranes Moist Neck: Positive: neck supple, trachea midline Cardiac: Positive: Reg Rate and Rhythm, S1/S2 Lungs: Positive: clear to auscultation, Normal Breath Sounds Neuro: Positive: Grossly Intact Abdomen: Positive: Soft, Active Bowel Sounds. Negative: Tender, Distended Skin: Positive: Clear Incision: Cardiac Cath Site Musculoskeletal: No Pain, Normal Range of Motion Extremities: Present: normal. Absent: edema - Labs and Meds Cardiac Enzymes 10/10/20 Range/Units 16:29 Lactate Dehydrogenase 298 H (91-180) units/L Coagulation 10/11/20 Range/Units 05:12 PT 16.2 H (12.2-14.9) Sec. INR 1.30 H (0.87-1.13) CBC 10/11/20 Range/Units 05:12 WBC 6.2 (4.5-11.0) K/mm3 RBC 4.94 (3.65-5.03) M/mm3 Hgb 13.6 (11.8-15.2) gm/dl Hct 40.7 (35.5-45.6) % Plt Count 243 (140-440) K/mm3 Lymph # (Auto) 2.0 (1.2-5.4) K/mm3 [place] # (Auto) 0.7 (0.0-0.8) K/mm3 Eos # (Auto) 0.0 (0.0-0.4) K/mm3 Baso # (Auto) 0.1 (0.0-0.1) K/mm3 Comprehensive Metabolic Panel 10/11/20 Range/Units 05:12 Sodium 130 L (137-145) mmol/L Potassium 3.8 (3.6-5.0) mmol/L Chloride 96.3 L (98-107) mmol/L Carbon Dioxide 23 (22-30) mmol/L BUN 33 H (9-20) mg/dL Creatinine 2.4 H (0.8-1.3) mg/dL Glucose 109 H (75-100) mg/dL Calcium 8.6 (8.4-10.2) mg/dL - Imaging and Cardiology EKG: report reviewed, image reviewed Nuclear stress test: report reviewed (10/11/2020 Negative for ischemia) Pharmacologic stress test: report reviewed (Tony is juan pablo) Echo: report reviewed (Echo (10/10/2020) reviewed: EF 10-15%. LV severe global hypokinesis, severe LVH, LVSF indeterminant. RV mildly hypokinetic. RA mildly dilated. Mild MR. Mod TR.)
--- NOTE | 2020-10-11 12:24 | Progress Note ---
Assessment and Plan Cultures: Blood culture 10/10/2020 no growth so far. A/P: 44-year-old man past medical history hypertension admitted with NSTEMI acute hypoxic respiratory failure. #Acute hypoxic respiratory failure: With small possible right pneumonia, fluid overload in the setting of NSTEMI and renal failure. Covid negative. #Right-sided pneumonia: Elevated procalcitonin in the setting of renal failure which is not specific. #PRIETO: Renally dose medications. #NSTEMI: Management per cardiology and primary. Recs: -Continue ceftriaxone and azithromycin for now. If discharging prior to completion would send with Omnicef 300 mg every 12 hours to complete 5 total days. Thank you for the consult, we will sign off. Please call for questions. Mau Estrada MD [facility] ([facility]) O: [phone] F: [phone] Subjective Date of service: 10/11/20 Interval history: Afebrile, white count 6.2 blood cultures remain negative so far. Objective - Exam Narrative Exam: Physical Exam: Constitutional: Alert, cooperative. Mild distress, on BiPAP. Head, Ears, Nose: Normocephalic, atraumatic. External ears, nose normal Eyes: Conjunctivae/corneas clear. No icterus. No ptosis. Neck: Supple, no meningeal signs Oral: dentition fair, no thrush Cardiovascular: S1, S2 normal. Respiratory: Good air entry, clear to auscultation bilaterally GI: Soft, non-tender; bowel sounds normal. No peritoneal signs. Musculoskeletal: No pedal edema, no cyanosis. Skin: No rash or abscess Hem/Lymphatic: No palpable cervical or supraclavicular nodes. No lymphangitis Psych: Mood ok. Affect normal Neurological: Awake, alert, oriented. No gross abnormality - Constitutional Vitals: Vital Signs Temp Pulse Resp BP Pulse Ox 98.5 F 94 H 14 163/120 100 10/11/20 03:29 10/11/20 06:33 10/11/20 03:56 10/11/20 06:33 10/11/20 03:56 Temperature -Last 24 Hours Temperature 98.5 F Temperature 97.3 F Temperature 97.1 F Temperature 98.1 F - Labs CBC & Chem 7: 10/11/20 05:12 10/11/20 05:12 Labs: Abnormal lab results 10/10/20 10/10/20 10/10/20 Range/Units 12:15 16:29 16:29 MCV (84-94) fl RDW (13.2-15.2) % [place] % (Auto) (0.0-7.3) % PT (12.2-14.9) Sec. INR (0.87-1.13) Heparin Anti-Xa Level < 0.10 L (0.3-0.7) U.I./ml Sodium (137-145) mmol/L Chloride (98-107) mmol/L BUN (9-20) mg/dL Creatinine (0.8-1.3) mg/dL Glucose (75-100) mg/dL Lactate Dehydrogenase 298 H (91-180) units/L Troponin T (0.00-0.029) ng/mL PTH Intact (15-65) pg/mL Urine Creatinine 28.0 H (0.1-20.0) mg/dL 10/11/20 10/11/20 10/11/20 Range/Units 05:12 05:12 05:12 MCV 82 L (84-94) fl RDW 16.1 H (13.2-15.2) % [place] % (Auto) 11.1 H (0.0-7.3) % PT 16.2 H (12.2-14.9) Sec. INR 1.30 H (0.87-1.13) Heparin Anti-Xa Level 0.23 L (0.3-0.7) U.I./ml Sodium 130 L (137-145) mmol/L Chloride 96.3 L (98-107) mmol/L BUN 33 H (9-20) mg/dL Creatinine 2.4 H (0.8-1.3) mg/dL Glucose 109 H (75-100) mg/dL Lactate Dehydrogenase (91-180) units/L Troponin T 0.100 H (0.00-0.029) ng/mL PTH Intact (15-65) pg/mL Urine Creatinine (0.1-20.0) mg/dL 10/11/20 Range/Units 05:12 MCV (84-94) fl RDW (13.2-15.2) % [place] % (Auto) (0.0-7.3) % PT (12.2-14.9) Sec. INR (0.87-1.13) Heparin Anti-Xa Level (0.3-0.7) U.I./ml Sodium (137-145) mmol/L Chloride (98-107) mmol/L BUN (9-20) mg/dL Creatinine (0.8-1.3) mg/dL Glucose (75-100) mg/dL Lactate Dehydrogenase (91-180) units/L Troponin T (0.00-0.029) ng/mL PTH Intact 275.4 H (15-65) pg/mL Urine Creatinine (0.1-20.0) mg/dL
[2020-10-11] MEDS: METOPROLOL TARTRATE 50 MG TAB PO SCH ×3 (14:03→21:49)
[2020-10-11] MEDS: FAMOTIDINE 20 MG TAB PO SCH (15:06)
--- NOTE | 2020-10-11 15:16 | Progress Note ---
Assessment and Plan COVID-19 PUI, ruled out with a negative test NSTEMI, type II due to PRIETO and underlying CHF Acute exacerbation of CHF Bilateral pneumonia, POA likely community-acquired Hypertensive emergency Acute kidney injury on possible CKD, due to vasomotor nephropathy Elevated D-dimer Hyponatremia Hypokalemia, repleted -Cardiology, infectious disease, nephrology, CCM consulted, appreciate recommendations -Continue antibiotic therapy -Pulmonary hygiene -VQ scan with low probability of pulmonary embolism -Trend CBC and BMP -Antihypertensive regimen: Hydralazine, Imdur, metoprolol -We will add diuretics, no ACEI for declining renal function, continue to monitor renal function -DVT prophylaxis with heparin brief history: This is a 44-year-old with hypertension, noncompliance, former smoker who presented to emergency department on 10/09 with complaints of shortness of breath and left-sided chest pain ongoing for 4 days and associated with nausea/vomiting and abdominal discomfort with occasional productive cough. Patient was found to be in hypertensive urgency and was given IV labetalol in the emergency departm ent. Further work-up revealed elevated troponin, elevated BNP and CXR is compatible with volume overload with possible underlying pneumonia. VQ scan was unremarkable markable. Patient was admitted to the hospital service as a COVID- 19 PUI, hypertensive emergency, NSTEMI, CHF, acute hypoxic respiratory failure and started on heparin drip. Cardiology, [facility], infectious disease and nephrology were consulted. 10/10: Patient was started on Lopressor, hydralazine and Imdur by cardiology and will continue heparin drip for 48 hours. Patient will have a stress test in the a.m. Overnight the patient for BiPAP however at this point in time examination patient was on nasal cannula. Plan to have stress test tomorrow. 10/11: Off heparin drip. Discussed with cardiology, unable to cardiac cath due to elevated creatinine. Blood pressure still uncontrolled, increase the dose for hydralazine and metoprolol. Plan to add diuretics today. Discussed with nephrology, will monitor creatinine level after adding diuretics. If BP improves and creatinine remains stable possible DC tomorrow. We will continue empiric antibiotics for bilateral pneumonia. Echo (10/10/2020) reviewed: EF 10-15%. LV severe global hypokinesis, severe LVH. Lexiscan (10/11/2020) reviewed: negative for ischemia. Subjective Date of service: 10/11/20 Principal diagnosis: Chest Pain, NSTEMI Interval history: Patient seen and examined. Medical records and medication list reviewed. No acute event overnight noted by the RN. Patient denies any chest pain but complains of difficulty breathing on exertion. Patient is tolerating diet. Discussed plan of care at bedside with patient. Objective - Exam Narrative Exam: GENERAL: well-developed and well-nourished -Malag[place] male lying on bed appeared to be in no discomfort. HEENT: Normocephalic. Atraumatic. No conjunctival congestion or icterus. Patient has moist mucous membranes. NECK: Supple. Trachea midline. CHEST/LUNGS: Clear to auscultated bilaterally, breathing nonlabored. No wheezes crackles or rhonchi. HEART/CARDIOVASCULAR: Regular in rate and rhythm. S1 and S2 positive. ABDOMEN: Abdomen is soft, nontender. Patient has normal bowel sounds. SKIN: There is no rash. Warm and dry. NEURO: No focal motor deficit. Follows command. MUSCULOSKELETAL: No joint effusion or tenderness. EXTRIMITY: No edema, no cyanosis or clubbing. PSYCH: Cooperative. - Constitutional Vitals: Vital Signs - 12hr 10/11/20 10/11/20 10/11/20 03:29 03:56 04:55 Temperature 98.5 F Pulse Rate 91 H 94 H 91 H Respiratory 17 14 Rate Blood Pressure 182/131 163/120 O2 Sat by Pulse 100 100 Oximetry 10/11/20 10/11/20 10/11/20 06:33 08:33 08:34 Temperature Pulse Rate 94 H Respiratory Rate Blood Pressure 163/120 198/128 193/132 O2 Sat by Pulse Oximetry 10/11/20 10/11/20 10/11/20 08:55 08:57 08:58 Temperature Pulse Rate Respiratory Rate Blood Pressure 247/150 192/112 187/110 O2 Sat by Pulse Oximetry 10/11/20 10/11/20 10/11/20 09:00 12:27 14:02 Temperature 97.7 F Pulse Rate 105 H 104 H Respiratory 18 Rate Blood Pressure 180/107 173/118 O2 Sat by Pulse 98 Oximetry 10/11/20 14:03 Temperature Pulse Rate 104 H Respiratory Rate Blood Pressure O2 Sat by Pulse Oximetry - Labs CBC & Chem 7: 10/11/20 05:12 10/11/20 05:12 Labs: Abnormal lab results 10/10/20 10/10/20 10/11/20 Range/Units 16:29 16:29 05:12 MCV 82 L (84-94) fl RDW 16.1 H (13.2-15.2) % [place] % (Auto) 11.1 H (0.0-7.3) % PT (12.2-14.9) Sec. INR (0.87-1.13) Heparin Anti-Xa Level < 0.10 L (0.3-0.7) U.I./ml Sodium (137-145) mmol/L Chloride (98-107) mmol/L BUN (9-20) mg/dL Creatinine (0.8-1.3) mg/dL Glucose (75-100) mg/dL Lactate Dehydrogenase 298 H (91-180) units/L Troponin T (0.00-0.029) ng/mL PTH Intact (15-65) pg/mL 10/11/20 10/11/20 10/11/20 Range/Units 05:12 05:12 05:12 MCV (84-94) fl RDW (13.2-15.2) % [place] % (Auto) (0.0-7.3) % PT 16.2 H (12.2-14.9) Sec. INR 1.30 H (0.87-1.13) Heparin Anti-Xa Level 0.23 L (0.3-0.7) U.I./ml Sodium 130 L (137-145) mmol/L Chloride 96.3 L (98-107) mmol/L BUN 33 H (9-20) mg/dL Creatinine 2.4 H (0.8-1.3) mg/dL Glucose 109 H (75-100) mg/dL Lactate Dehydrogenase (91-180) units/L Troponin T 0.100 H (0.00-0.029) ng/mL PTH Intact 275.4 H (15-65) pg/mL HEART Score - HEART Score EKG: Normal Age: 45-65 Risk factors: 1-2 risk factors Troponin: Troponin T 0.100 ng/mL (0.00-0.029) H 10/11/20 05:12 Troponin: > 3x normal limit - Critical Actions Critical Actions: 4-6 pts:12-16.6% risk of adverse cardiac event. Should be admitted
--- NOTE | 2020-10-11 15:38 | Procedure Note ---
Date of procedure: 10/11/20 Pre-op diagnosis: right pleural effusion Post-op diagnosis: same Procedure: US thoracentesis, right Findings: small right pl fluid Anesthesia: local Surgeon: KUMAR WELLS Estimated blood loss: none Pathology: list (120cc) Specimen disposition: to lab Condition: stable Disposition: floor
--- NOTE | 2020-10-11 16:00 | Progress Note ---
Assessment and Plan Acute coronary syndrome, non-ST elevation myocardial infarction. Hypertensive emergency. Possible flash pulmonary edema. Acute exacerbation of congestive heart failure. Acute kidney injury, possibly on chronic. Person under investigation for COVID-19 infection. Elevated serum transaminases. Hyponatremia - prn supplemental oxygen to keep O2 sats > 90% - ACS w/up and secondaryu prevention per cardiology rec's - prn bronchodilators (CRYS) with pulm hygiene per RT - avoid nephrotoxins, renally dose all medications - mobility protocols to prevent pressure ulcers - PT/OT as tolerated - Wound care per RN/WCT - accuchecks with glycemic control per SSI for target blood glucose < 180 mg/dL - Smoking cessation strongly counseled at the bedside - prn analgesia per pain score - home oxygen evaluation at discharge - GI & VTE prophylaxis - Flu & pneumovax per protocol - Pulmonary out patient follow up for PFTs and optimization of respiratory status - continue other care per attending / other consultants ... re-evaluate in am & prn Subjective Date of service: 10/11/20 Principal diagnosis: ACS; NSTEMI; HTNsive emergency; AE-CHF; PRIETO; PUI COVID-19 infection Interval history: Patient is seen today for: ACS; NSTEMI; HTNsive emergency; Possible flash pulmonary edema; AE-CHF; PRIETO; PUI COVID-19 infection. Seen and examined at bedside; 24hour events reviewed; nursing and respiratory care staff consulted; no adverse overnight events reported to me; resting peacefully in bed; No N/V/F/C; no chest pains Objective Vital Signs - 12hr 10/11/20 10/11/20 10/11/20 04:55 06:33 08:33 Temperature Pulse Rate 91 H 94 H Respiratory Rate Blood Pressure 163/120 198/128 O2 Sat by Pulse Oximetry 10/11/20 10/11/20 10/11/20 08:34 08:55 08:57 Temperature Pulse Rate Respiratory Rate Blood Pressure 193/132 247/150 192/112 O2 Sat by Pulse Oximetry 10/11/20 10/11/20 10/11/20 08:58 09:00 12:27 Temperature 97.7 F Pulse Rate 105 H Respiratory 18 Rate Blood Pressure 187/110 180/107 173/118 O2 Sat by Pulse 98 Oximetry 10/11/20 10/11/20 10/11/20 14:02 14:03 15:05 Temperature Pulse Rate 104 H 104 H 87 Respiratory Rate Blood Pressure O2 Sat by Pulse Oximetry 10/11/20 15:06 Temperature Pulse Rate 87 Respiratory Rate Blood Pressure O2 Sat by Pulse Oximetry Constitutional: no acute distress Eyes: non-icteric ENT: oropharynx moist Neck: supple, no lymphadenopathy, no JVD Effort: normal Ascultation: Bilateral: clear Percussion: Bilateral: not dull Cardiovascular: regular rate and rhythm Gastrointestinal: normoactive bowel sounds, soft, non-tender, non-distended Integumentary: normal Extremities: no cyanosis, no edema, pulses normal, no ischemia or petechiae Neurologic: normal mental status, non-focal exam, pupils equal and round, motor strength normal and Psychiatric: mood appropriate, affect normal CBC and BMP: 10/11/20 05:12 10/12/20 05:07 ABG, PT/INR, D-dimer: PT/INR, D-dimer PT 16.2 Sec. (12.2-14.9) H 10/11/20 05:12 INR 1.30 (0.87-1.13) H 10/11/20 05:12 D-Dimer 610.28 ng/mlDDU (0-234) H 10/10/20 07:34 Abnormal lab findings: Abnormal Labs 10/09/20 10/09/20 10/09/20 20:18 20:18 20:23 RBC 5.55 H Hct 45.8 H MCV 83 L MCH 27 L RDW 15.7 H [place] % (Auto) 9.6 H PT 16.6 H INR 1.34 H D-Dimer Heparin Anti-Xa Level Sodium 130 L Potassium Chloride 94.9 L Carbon Dioxide 21 L BUN 30 H Creatinine 2.6 H Glucose 137 H AST 54 H ALT 84 H Lactate Dehydrogenase Troponin T 0.121 H* C-Reactive Protein NT-Pro-B Natriuret Pep Total Protein 6.1 L Albumin 3.2 L HDL Cholesterol 28 L PTH Intact Urine Creatinine 10/09/20 10/09/20 10/09/20 20:23 20:25 22:50 RBC Hct MCV MCH RDW [place] % (Auto) PT INR D-Dimer 834.1 H Heparin Anti-Xa Level Sodium Potassium Chloride Carbon Dioxide BUN Creatinine Glucose AST ALT Lactate Dehydrogenase Troponin T 0.129 H* C-Reactive Protein NT-Pro-B Natriuret Pep 05171 H Total Protein Albumin HDL Cholesterol PTH Intact Urine Creatinine 10/09/20 10/10/20 10/10/20 22:50 02:54 07:34 RBC Hct MCV MCH RDW [place] % (Auto) PT INR D-Dimer 610.28 H Heparin Anti-Xa Level 0.15 L Sodium Potassium Chloride Carbon Dioxide BUN Creatinine Glucose AST ALT Lactate Dehydrogenase 504 H Troponin T 0.103 H* D C-Reactive Protein NT-Pro-B Natriuret Pep Total Protein Albumin HDL Cholesterol PTH Intact Urine Creatinine 10/10/20 10/10/20 10/10/20 07:34 09:06 12:15 RBC Hct MCV MCH RDW [place] % (Auto) PT INR D-Dimer Heparin Anti-Xa Level Sodium 136 L Potassium 3.5 L Chloride Carbon Dioxide BUN 34 H Creatinine 2.6 H Glucose AST ALT Lactate Dehydrogenase 324 H Troponin T 0.084 H C-Reactive Protein 1.40 H NT-Pro-B Natriuret Pep Total Protein Albumin HDL Cholesterol PTH Intact Urine Creatinine 28.0 H 10/10/20 10/10/20 10/11/20 16:29 16:29 05:12 RBC Hct MCV 82 L MCH RDW 16.1 H [place] % (Auto) 11.1 H PT INR D-Dimer Heparin Anti-Xa Level < 0.10 L Sodium Potassium Chloride Carbon Dioxide BUN Creatinine Glucose AST ALT Lactate Dehydrogenase 298 H Troponin T C-Reactive Protein NT-Pro-B Natriuret Pep Total Protein Albumin HDL Cholesterol PTH Intact Urine Creatinine 10/11/20 10/11/20 10/11/20 05:12 05:12 05:12 RBC Hct MCV MCH RDW [place] % (Auto) PT 16.2 H INR 1.30 H D-Dimer Heparin Anti-Xa Level 0.23 L Sodium 130 L Potassium Chloride 96.3 L Carbon Dioxide BUN 33 H Creatinine 2.4 H Glucose 109 H AST ALT Lactate Dehydrogenase Troponin T 0.100 H C-Reactive Protein NT-Pro-B Natriuret Pep Total Protein Albumin HDL Cholesterol PTH Intact 275.4 H Urine Creatinine Allied health notes reviewed: nursing
[2020-10-11] MEDS ORDERED: FUROSEMIDE 40 MG/4 ML INJ IV ONE (17:02)
[2020-10-11] MEDS: ASPIRIN EC 325 MG TAB PO SCH (17:35)
[2020-10-11] MEDS: HEPARIN 5,000 UNIT/1 ML VIAL SUB-Q SCH ×2 (17:35→22:27)
[2020-10-11 17:40] LABS: Monocytes Body Fluid 3 %; Total Cells Counted 100 /mm3
--- NOTE | 2020-10-11 17:49 | XRay Report ---
CHEST 1 VIEW INDICATION: right pleural effusion, recent thora COMPARISON: 10/09/2020 FINDINGS: SUPPORT DEVICES: None. HEART / MEDIASTINUM: Persisting cardiac enlargement LUNGS / PLEURA: Resolved right pleural effusion. No pneumothorax. ADDITIONAL FINDINGS: IMPRESSION: 1. No acute cardiopulmonary disease Signer Name: Bertrand Bailey MD Signed: 10/11/2020 5:44 PM Workstation Name: [id number]
[2020-10-11] MEDS: AZITHROMYCIN/NS 500 MG/250 ML 500 MG/250 ML BAG IV SCH (21:48)
[2020-10-11] MEDS: cefTRIAXone/NS 2 GM/100 ML 2 GM/100 ML BAG IV SCH (21:48)
[2020-10-11] MEDS: hydrALAZINE 100 MG TAB PO SCH (21:49)
[2020-10-12 05:44] LABS: Calcium 8.7 mg/dL (8.4-10.2)
[2020-10-12] MEDS ORDERED: FUROSEMIDE 40 MG TAB PO SCH (06:00)
[2020-10-12] MEDS: HEPARIN 5,000 UNIT/1 ML VIAL SUB-Q SCH ×2 (06:37→13:45)
--- NOTE | 2020-10-12 07:15 | Ultrasound Report ---
ULTRASOUND RENAL INDICATION: Acute renal failure.. COMPARISON: No relevant prior imaging study available. FINDINGS: RIGHT KIDNEY: Size: 11.1 cm. Echogenicity: Normal. Cortical thickness: Normal. Stones: None. Hydronephrosis: None. Cyst or mass: None. LEFT KIDNEY: Size: 10.2 cm. Echogenicity: Normal. Cortical thickness: Normal. Stones: None. Hydronephrosis: None. Cyst or mass: None. Urinary Bladder: No significant abnormality. Free Fluid: None. Additional Findings: None. IMPRESSION 1. No acute sonographic abnormality of the kidneys. Signer Name: Antwan Sandoval MD Signed: 10/12/2020 7:11 AM Workstation Name: [id number]
--- NOTE | 2020-10-12 07:46 | Ultrasound Report ---
Ultrasound-guided thoracentesis HISTORY: Right pleural effusion. COMPARISON: 10/09/2020 PROCEDURE: The risks (including but not limited to bleeding, infection, and pneumothorax) and benefi ts were explained to the patient and informed consent was obtained. A time out procedure was perform ed. Ultrasound was used to evaluate the right pleural effusion and locate the optimal site for needle ent ry. Once the skin was marked, the procedure site was prepped and draped in the usual sterile fashion and lidocaine was used for local anesthesia. A 5 [place] thoracentesis catheter was placed. The pat ient was monitored closely throughout the procedure, and a total of 500 mL of blood-tinged fluid was aspirated. Samples were sent to the lab for further evaluation per the primary clinicians orders. The patient tolerated the procedure well with no complications. A post-procedure chest x-ray was imm ediately ordered. IMPRESSION: Successful ultrasound-guided right thoracentesis. Signer Name: Chau Lee Jr, MD Signed: 10/12/2020 7:42 AM Workstation Name: [id number]
[2020-10-12] MEDS ORDERED: POTASSIUM CHLORIDE ER 20 MEQ TAB PO SCH (09:00)
[2020-10-12] MEDS: ASPIRIN EC 325 MG TAB PO SCH (09:44)
[2020-10-12] MEDS: METOPROLOL TARTRATE 50 MG TAB PO SCH (09:44)
[2020-10-12] MEDS: hydrALAZINE 100 MG TAB PO SCH (09:45)
[2020-10-12] MEDS: FAMOTIDINE 20 MG TAB PO SCH (09:45)
--- NOTE | 2020-10-12 11:18 | Progress Note ---
Assessment and Plan 1. CKD vs Acute kidney injury: PRIETO superimposed on CKD UA trace protein. Renal US negative. Monitor renal function. Creatinine leveled off. Avoid nephrotoxic agents. Meds dosage based on GFR. 2. FEN: Hyponatremia, improving, monitor. On Lasix for control volume. Monitor lytes and volume status. 3. Acute hypoxic respiratory failure, POA: 2/2 PNA and CHF. COVID test negative. On RA today. 4. NSTEMI type II: Followed by Cards. 5. CHF: EF 10-15%. 6. Uncontrolled HTN: 2/2 non-compliance. BP is better. Monitor BP and adjust meds as needed. 7. R pleural effusion: S/p thoracentesis. 8. Elevated Transaminases: Monitor. Will sign off. Please call with any questions. F/u with me in 1-2 weeks after d/c. Subjective: Patient was seen and examined at the bedside. Doing better. Objective: General appearance: well-developed, appears stated age, no distress HEENT: ATNC, pupils equal Neck: trachea midline Respiratory: ctab Heart: regular, S1S2, no murmur Gastrointestinal: soft, normoactive bowel sounds, not tender Integumentary: no rash, warm and dry Ext: no edema Neurologic: AO, able to move extremities Musculoskeletal: no obvious deformity Subjective Date of service: 10/12/20 Principal diagnosis: Chest Pain, NSTEMI Objective - Vital Signs Vital signs: Vital Signs - 12hr 10/12/20 10/12/20 10/12/20 00:00 00:10 02:36 Temperature 97.8 F Pulse Rate 75 75 Pulse Rate [ 80 From Monitor] Respiratory 18 16 Rate Blood Pressure 120/80 O2 Sat by Pulse 98 99 Oximetry 10/12/20 10/12/20 10/12/20 03:47 04:00 07:56 Temperature 97.6 F 97.9 F Pulse Rate 78 75 79 Pulse Rate [ From Monitor] Respiratory 18 18 Rate Blood Pressure 136/84 147/100 O2 Sat by Pulse 96 98 Oximetry - Lab 10/11/20 05:12 10/12/20 05:07 Most recent lab results Calcium 8.7 mg/dL (8.4-10.2) 10/12/20 05:07 Magnesium 1.80 mg/dL (1.7-2.3) 10/11/20 05:12 Urine Creatinine 28.0 mg/dL (0.1-20.0) H 10/10/20 12:15 Urine Sodium 101 mmol/L 10/10/20 12:15 Medications & Allergies - Medications Allergies/Adverse Reactions: Allergies No Known Allergies Allergy (Verified 10/09/20 20:07) Home Medications: Home Medications Medication Instructions Recorded Confirmed Last Taken Type No Known Home Medications [No 10/10/20 10/10/20 Unknown History Reported Home Medications] Active Medications: Generic Name Dose Route Start Last Admin Trade Name Freq PRN Reason Stop Dose Admin Acetaminophen 650 mg 10/10/20 00:36 Acetaminophen 325 Mg Tab PO Q4H PRN Pain MILD(1-3)/Fever >100.5/CARRASCO Aspirin 325 mg 10/11/20 10:00 10/12/20 09:44 Aspirin Ec 325 Mg Tab PO 325 mg QDAY AMANDA Administration Famotidine 20 mg 10/11/20 10:00 10/12/20 09:45 Famotidine 20 Mg Tab PO 20 mg QDAY AMANDA Administration Furosemide 40 mg 10/12/20 06:00 10/12/20 06:37 Furosemide 40 Mg Tab PO 40 mg 0600,1800 AMANDA Administration Heparin Sodium (Porcine) 5,000 unit 10/11/20 16:30 10/12/20 06:37 Heparin 5,000 Unit/1 Ml Vial SUB-Q 5,000 unit Q8HR AMANDA Administration Hydralazine HCl 10 mg 10/10/20 05:19 10/11/20 21:48 Hydralazine 20 Mg/1 Ml Inj IV 10 mg Q4HR PRN Administration Blood Pressure Hydralazine HCl 100 mg 10/11/20 22:00 10/12/20 09:45 Hydralazine 100 Mg Tab PO 100 mg Q12HR AMANDA Administration Ceftriaxone Sodium 2 gm in 100 mls @ 200 mls/hr 10/10/20 22:00 10/11/20 21:48 Rocephin/Ns 2 Gm/100 Ml IV 10/14/20 22:29 200 mls/hr Q24H AMANDA Administration Protocol Azithromycin 500 mg in 250 mls @ 250 mls/hr 10/10/20 22:00 10/11/20 21:48 Zithromax/Ns IV 10/14/20 22:59 250 mls/hr Q24H AMANDA Administration Protocol Isosorbide Mononitrate 30 mg 10/10/20 10:00 10/12/20 09:45 Isosorbide Mononitrate Er 30 Mg Tab PO 30 mg QDAY AMANDA Administration Magnesium Hydroxide 30 ml 10/10/20 00:36 Magnesium Hydroxide (Mom) Oral Liqd Udc PO Q4H PRN Constipation Metoprolol Tartrate 100 mg 10/11/20 11:00 10/12/20 09:44 Metoprolol Tartrate 50 Mg Tab PO 100 mg BID AMANDA Administration Morphine Sulfate 2 mg 10/10/20 00:36 10/11/20 17:28 Morphine 2 Mg/1 Ml Inj IV 2 mg Q5MIN PRN Administration Chest Pain unrelieved by NTG Nitroglycerin 0.4 mg 10/10/20 00:36 Nitroglycerin 0.4 Mg Tab Subl SL .Q5MIN PRN Chest Pain Ondansetron HCl 4 mg 10/10/20 00:36 Ondansetron 4 Mg/2 Ml Inj IV Q8H PRN Nausea And Vomiting Potassium Chloride 40 meq 10/12/20 09:00 10/12/20 09:44 Potassium Chloride Er 20 Meq Tab PO 10/12/20 17:01 40 meq Q8H AMANDA Administration Sodium Chloride 10 ml 10/10/20 10:00 10/12/20 09:45 Sodium Chloride 0.9% 10 Ml Flush Syringe IV 10 ml BID AMANDA Administration Sodium Chloride 10 ml 10/10/20 00:36 10/11/20 06:34 Sodium Chloride 0.9% 10 Ml Flush Syringe IV 10 ml PRN PRN Administration LINE FLUSH
[2020-10-12 12:39] VITALS: BP 138/90
--- NOTE | 2020-10-12 13:34 | Discharge Summary ---
Providers - Providers Date of Admission: 10/09/20 23:57 Date of discharge: 10/12/20 Attending physician: ANNA DONALD 10/10/20 Consult to Cardiac Rehabilitation [CONS] Routine Reason For Exam: Phase I 10/10/20 00:36 Consult to Cardiology [CONS] Routine Consulting Provider: WATSON TIJERINA Reason For Exam: chest pain Consult to Physician [CONS] Routine Comment: Consulting Provider: SHERRON SINGER Physician Instructions: Reason For Exam: PUI- R/O Covid-19 10/10/20 09:36 Consult to Physician [CONS] Routine Comment: Consulting Provider: YEIMI FREEMAN Physician Instructions: Reason For Exam: PRIETO 10/10/20 13:11 Consult to Physician [CONS] Routine Comment: Consulting Provider: HERNAN COTTO Physician Instructions: Reason For Exam: NSTEMI Primary care physician: DIRECTOR OF STRATEGIC SOURCING Hospitalization Condition: Serious Pertinent studies: Chest abdomen x-ray, pulmonary VQ scan, renal ultrasound, thoracentesis, myocardial stress test, 2D echocardiogram Hospital course: This is a 44-year-old with hypertension, noncompliance, former smoker who presented to emergency department on 10/09 with complaints of shortness of breath and left-sided chest pain ongoing for 4 days and associated with nausea/vomiting and abdominal discomfort with occasional productive cough. Patient was found to be in hypertensive urgency and was given IV labetalol in the emergency department. Further work-up revealed elevated troponin, elevated BNP and CXR is compatible with volume overload with possible underlying pneumonia and right pleural effusion.. VQ scan was unremarkable markable. Patient was admitted to the hospital service as a COVID-19 PUI, hypertensive emergency, NSTEMI, CHF, acute hypoxic respiratory failure and started on heparin drip. Cardiology, CCM, infectious disease and nephrology were consulted. Daily clinical course: 10/10: Patient was started on Lopressor, hydralazine and Imdur by cardiology and will continue heparin drip for 48 hours. Patient will have a stress test in the a.m. Overnight the patient for BiPAP however at this point in time examination patient was on nasal cannula. Plan to have stress test tomorrow. VQ scan with low probability of pulmonary embolism. S/p thoracentesis today drained 500 ml of fluid -we will follow further dialysis 10/11: Off heparin drip. Discussed with cardiology, unable to cardiac cath due to elevated creatinine. Blood pressure still uncontrolled, increase the dose for hydralazine and metoprolol. Plan to add diuretics today. Discussed with nephrology, will monitor creatinine level after adding diuretics. If BP improves and creatinine remains stable possible DC tomorrow. We will continue empiric antibiotics for bilateral pneumonia. Echo (10/10/2020) reviewed: EF 10-15%. LV severe global hypokinesis, severe LVH. Lexiscan (10/11/2020) reviewed: negative for ischemia. 10/12: Pleural fluid and blood culture is negative. Creatinine appears to be stable, nephrology cleared for discharge. Potassium repleted. We will discharge the patient with oral diuretics, aspirin, beta-shakeel. Patient was recommended to follow-up with forensic photographer and aboriginal education worker coordinator in 1 to 2 weeks. Needed repeat BMP to initiate on ACEI. Recommended daily weight and strict dietary/fluid restriction. Patient verbalized understanding and was discharged home in stable condition with outpatient follow-up. Disposition: [id number]/[id number] HOME UNDER HOME [facility] Final Discharge Diagnosis (Prints w/discharge instructions): Acute hypoxic respiratory failure, due to underlying CHF. COVID-19 PUI, ruled out with a negative test. NSTEMI, type II due to PRIETO and underlying CHF. Acute exacerbation of systolic CHFrEf 10-15%. Bilateral pneumonia, POA likely community-acquired. Hypertensive emergency. Acute kidney injury on possible CKD, due to vasomotor nephropathy. Elevated D-dimer. Hyponatremia. Hypokalemia, repleted. Right pleural effusion, status post thoracentesis Core Measure Documentation - Palliative Care Palliative Care/ Comfort Measures: Not Applicable - Core Measures Any of the following diagnoses?: heart failure - Heart Failure Discharge Requirements [place]/ARB for LVSD if EF <40%: Not Applicable Reason for no [place]O/ARB: Renal impairment Beta shakeel at discharge: Yes Exam - Physical Exam Narrative exam: GENERAL: well-developed and well-nourished -Bulgarian male lying on bed appeared to be in no discomfort. HEENT: Normocephalic. Atraumatic. No conjunctival congestion or icterus. Patient has moist mucous membranes. NECK: Supple. Trachea midline. CHEST/LUNGS: Clear to auscultated bilaterally, breathing nonlabored. No wheezes crackles or rhonchi. HEART/CARDIOVASCULAR: Regular in rate and rhythm. S1 and S2 positive. ABDOMEN: Abdomen is soft, nontender. Patient has normal bowel sounds. SKIN: There is no rash. Warm and dry. NEURO: No focal motor deficit. Follows command. MUSCULOSKELETAL: No joint effusion or tenderness. EXTRIMITY: No edema, no cyanosis or clubbing. PSYCH: Cooperative. - Constitutional Vitals: Temp Pulse Resp BP Pulse Ox 97.9 F 78 18 138/90 98 10/12/20 12:00 10/12/20 12:00 10/12/20 12:00 10/12/20 12:00 10/12/20 12:00 Plan Activity: advance as tolerated Weight Bearing Status: Non-Weight Bearing Diet: low fat, low salt, renal Special Instructions: restrict fluid intake to (1.2l per day) Additional Instructions: f/u with Dr Lorenz at [place] office on 10/29/2020 at 1:15pm. Follow up with: PRIMARY CAREMD [Primary Care Provider] - 3-5 Days [place] LORENZ MD [Staff Physician] - 7 Days YEIMI FREEMAN MD [Staff Physician] - 7 Days Prescriptions: AtorvaSTATin [Lipitor] 20 mg PO QHS #30 tab hydrALAZINE [Apresoline TAB] 100 mg PO Q12HR #60 tab Aspirin EC [Halfprin EC] 81 mg PO QDAY #30 tablet. ISOSORBIDE MONOnitrate [Imdur ER] 30 mg PO QDAY #30 tablet Potassium Chloride [K-Dur] 10 meq PO QDAY #10 tablet Furosemide [Lasix TAB] 40 mg PO 0600,1800 #60 tablet Metoprolol [Lopressor TAB] 100 mg PO BID #60 tablet Azithromycin [Zithromax] 250 mg PO DAILY #3 tablet
--- NOTE | 2020-10-14 11:27 | Treadmill Report ---
[facility] Test Date: 2020-10-11 Test Time: 09:29:48 Pat Name: ESTEVAN CARVALHO Department: Room: A469 1 Gender: M Yarn Examiner: oJlene Car : 1975 Requested By: ANALY PITTS Order Number: [id number] Reading MD: David Cobb Interpretive Statements Electronically Signed On 10-14-2020 11:27:30 EDT by David Cobb
== END 2020-10-12 15:30 | disposition home health service (06) | DRG 280 ==
LOC: ED 19:26 → 3A 23:57 → CC1 10-10 01:17 → 4A 10-10 18:05
PROVIDERS: ADMIT Internal Medicine Geriatric Medicine; ATTEND Internal Medicine
PROC: 0W993ZZ Drainage of Right Pleural Cavity, Percutaneous Approach (ICD-10-PCS; principal; 2020-10-10)
PROC: 5A09357 Assistance with Respiratory Ventilation, Less than 24 Consecutive Hours, Continuous Positive Airway Pressure (ICD-10-PCS; 2020-10-10)
DX: I13.0 Hypertensive heart and chronic kidney disease with heart failure and stage 1 through stage 4 chronic kidney disease, or unspecified chronic kidney disease (principal); J96.01 Acute respiratory failure with hypoxia; I21.A1 Myocardial infarction type 2; J18.9 Pneumonia, unspecified organism; I50.23 Acute on chronic systolic (congestive) heart failure; N17.9 Acute kidney failure, unspecified; E87.1 Hypo-osmolality and hyponatremia; I16.1 Hypertensive emergency; J91.8 Pleural effusion in other conditions classified elsewhere; I42.9 Cardiomyopathy, unspecified; E87.6 Hypokalemia; N18.9 Chronic kidney disease, unspecified; Z20.822 Contact with and (suspected) exposure to COVID-19; Z87.891 Personal history of nicotine dependence; Z82.3 Family history of stroke; Z90.49 Acquired absence of other specified parts of digestive tract; Z82.49 Family history of ischemic heart disease and other diseases of the circulatory system; Z91.19 Patient's noncompliance with other medical treatment and regimen
CPT/HCPCS: 32555; 36415; 71045; 74022; 76770; 78452; 78580; 80048; 80053; 80061; 81001; 82570; 82728; 82947; 83605; 83615; 83690; 83735; 83880; 83970; 84145; 84160; 84300; 84484; 85014; 85018; 85025; 85027; 85379; 85520; 85610; 86140; 87040; 87116; 89051; 93005; 93017; 93306; 94660; 96361; 96366; 96367; 96374; 96375; 96376; G0378; A9502; A9540; J0360; J0456; J0696; J1644; J1940; J2270; J2785; U0003

== ENCOUNTER 2021-01-20 13:13 | Emergency (ER) | payer BC ==
[2021-01-20] MEDS ORDERED: ASPIRIN 325 MG TAB PO ONE (13:18)
--- NOTE | 2021-01-20 13:53 | XRay Report ---
CHEST 2 VIEWS 1339 INDICATION / CLINICAL INFORMATION: CP COMPARISON: 10/11/2020 FINDINGS: SUPPORT DEVICES: None. HEART / MEDIASTINUM: Heart size is now within normal limits. LUNGS / PLEURA: Pulmonary vascularity appears within normal limits. Lung toscano are clear. No pleural effusions are seen. No pneumothorax. ADDITIONAL FINDINGS: No significant additional findings. IMPRESSION: No significant acute abnormality Signer Name: Sameer Tee MD Signed: 01/20/2021 1:49 PM Workstation Name: [id number]
[2021-01-20 13:57] LABS: Hematocrit 46.7 % (35.5-45.6); Hemoglobin 15.7 gm/dl (11.8-15.2); Mean Corpuscular HGB Conc 34 % (32-34); Mean Corpuscular Volume 81 fl (84-94); Platelet Count 167 K/mm3 (140-440); Red Blood Count 5.78 M/mm3 (3.65-5.03)
[2021-01-20 14:11] LABS: Red Cell Distribution Width 20.4 % (13.2-15.2)
[2021-01-20 14:24] LABS: Alanine Aminotransferase 31 units/L (7-56); Albumin 4.4 g/dL (3.9-5); BUN/Creatinine Ratio 9; Blood Urea Nitrogen 18 mg/dL (9-20); Calcium 10.1 mg/dL (8.4-10.2); Hemolysis Index 3
[2021-01-20 15:13] LABS: Anisocytosis 1+; Total Cells Counted 100
[2021-01-20 15:14] LABS: Ovalocytes Few; Platelet Estimate Consistent w Auto
[2021-01-20] MEDS ORDERED: KETOROLAC 30 MG/1 ML INJ IV ONE (15:29)
--- NOTE | 2021-01-20 17:17 | Emergency Department Report ---
ED Chest Pain HPI - General Chief Complaint: Chest Pain Stated Complaint: CHEST PAIN SEVERE HEADACHE Time Seen by Provider: 01/20/21 15:28 Source: patient Mode of arrival: Ambulatory Limitations: No Limitations - History of Present Illness Initial Comments: Patient is a 45-year-old F Indonesian male with a past medical history of hypertension and of formal life is a tobacco smoker who no longer smokes who is presenting with 3 days of chest discomfort. States pain is almost exclusively at night. States throughout the day while he is at work he actually feels much improved. Denies nausea cough congestion does have some occasional shortness of breath. Patient was worried about the chest discomfort he was having which is preferred continuous throughout the tightness is a tight squeezing sensation that he made an appointment to see a insurance administrative assistant. Appointment is for tomorrow. Patient states the pain last night was almost unbearable so he decided to come to the emergency department to make sure he was not having a heart attack. Severity scale (0 -10): 8 - Related Data Previous Rx's Medication Instructions Recorded Last Taken Type Aspirin EC [Halfprin EC] 81 mg PO QDAY #30 tablet. 10/12/20 Unknown Rx AtorvaSTATin [Lipitor] 20 mg PO QHS #30 tab 10/12/20 Unknown Rx Azithromycin [Zithromax] 250 mg PO DAILY #3 tablet 10/12/20 Unknown Rx Furosemide [Lasix TAB] 40 mg PO 0600,1800 #60 tablet 10/12/20 Unknown Rx ISOSORBIDE MONOnitrate [Imdur ER] 30 mg PO QDAY #30 tablet 10/12/20 Unknown Rx Metoprolol [Lopressor TAB] 100 mg PO BID #60 tablet 10/12/20 Unknown Rx Potassium Chloride [K-Dur] 10 meq PO QDAY #10 tablet 10/12/20 Unknown Rx hydrALAZINE [Apresoline TAB] 100 mg PO Q12HR #60 tab 10/12/20 Unknown Rx Omeprazole 40 mg PO DAILY #30 capsule. 01/20/21 Unknown Rx Allergies Allergy/AdvReac Type Severity Reaction Status Date / Time No Known Allergies Allergy Verified 01/20/21 13:14 Heart Score - HEART Score History: Slightly suspicious EKG: Non-specific Age: 45-65 Risk factors: 1-2 risk factors Troponin: < normal limit HEART Score: 3 - EKG Read Time Time EKG Completed: 13:22 EKG Read Time: 13:25 ED Review of Systems ROS: Stated complaint: CHEST PAIN SEVERE HEADACHE Other details as noted in HPI Comment: All other systems reviewed and negative ED Past Medical Hx - Past Medical History Hx Hypertension: Yes Hx Congestive Heart Failure: No Hx Diabetes: No Hx Asthma: No Hx COPD: No - Surgical History Hx Appendectomy: Yes - Social History Smoking Status: Former Smoker - Medications Home Medications: Home Medications Medication Instructions Recorded Confirmed Last Taken Type Aspirin EC [Halfprin EC] 81 mg PO QDAY #30 tablet. 10/12/20 Unknown Rx AtorvaSTATin [Lipitor] 20 mg PO QHS #30 tab 10/12/20 Unknown Rx Azithromycin [Zithromax] 250 mg PO DAILY #3 tablet 10/12/20 Unknown Rx Furosemide [Lasix TAB] 40 mg PO 0600,1800 #60 tablet 10/12/20 Unknown Rx ISOSORBIDE MONOnitrate [Imdur ER] 30 mg PO QDAY #30 tablet 10/12/20 Unknown Rx Metoprolol [Lopressor TAB] 100 mg PO BID #60 tablet 10/12/20 Unknown Rx Potassium Chloride [K-Dur] 10 meq PO QDAY #10 tablet 10/12/20 Unknown Rx hydrALAZINE [Apresoline TAB] 100 mg PO Q12HR #60 tab 10/12/20 Unknown Rx Omeprazole 40 mg PO DAILY #30 capsule. 01/20/21 Unknown Rx ED Physical Exam - General Limitations: No Limitations General appearance: alert, in no apparent distress - Head Head exam: Present: atraumatic, normocephalic - Eye Eye exam: Present: normal appearance - ENT ENT exam: Present: mucous membranes moist - Neck Neck exam: Present: normal inspection - Respiratory Respiratory exam: Present: normal lung sounds bilaterally. Absent: respiratory distress, wheezes, rales, rhonchi - Cardiovascular Cardiovascular Exam: Present: regular rate, normal rhythm, normal heart sounds. Absent: systolic murmur, diastolic murmur, rubs, gallop - GI/Abdominal GI/Abdominal exam: Present: soft, normal bowel sounds. Absent: distended, tenderness - Rectal Rectal exam: Present: deferred - Extremities Exam Extremities exam: Present: normal inspection - Back Exam Back exam: Present: normal inspection - Neurological Exam Neurological exam: Present: alert, oriented X3 - Psychiatric Psychiatric exam: Present: normal affect, normal mood - Skin Skin exam: Present: warm, dry, intact, normal color. Absent: rash ED Course Vital Signs 01/20/21 01/20/21 01/20/21 13:17 15:26 15:30 Temperature 98.3 F Pulse Rate 133 H 112 H 97 H Respiratory 24 25 H 19 Rate Blood Pressure 169/93 178/95 Blood Pressure [Right] O2 Sat by Pulse 100 99 100 Oximetry 01/20/21 01/20/21 01/20/21 15:46 16:00 16:12 Temperature Pulse Rate 89 84 84 Respiratory 21 18 18 Rate Blood Pressure 178/95 178/95 Blood Pressure 178/95 [Right] O2 Sat by Pulse 100 100 100 Oximetry ETIENNE score - Etienne Score Age > 65: (0) No Aspirin use within the Past 7 Days: (0) No 3 or more CAD Risk Factors: (0) No 2 or more Angina events in past 24 hrs: (1) Yes Known CAD with more than 50% Stenosis: (0) No Elevated Cardiac Markers: (1) Yes ST Deviation Greater than 0.5mm: (1) Yes ETIENNE Score: 3 ED Medical Decision Making - Lab Data Result diagrams: 01/20/21 13:26 01/20/21 13:26 Lab Results 01/20/21 01/20/21 01/20/21 Range/Units 13:26 13:26 15:53 WBC 4.5 (4.5-11.0) K/mm3 RBC 5.78 H (3.65-5.03) M/mm3 Hgb 15.7 H (11.8-15.2) gm/dl Hct 46.7 H (35.5-45.6) % MCV 81 L (84-94) fl MCH 27 L (28-32) pg MCHC 34 (32-34) % RDW 20.4 H (13.2-15.2) % Plt Count 167 (140-440) K/mm3 Lymph % (Auto) Data Reviewer Add Manual Diff Complete Total Counted 100 Seg Neutrophils % Data Reviewer Seg Neuts % (Manual) 16.0 L (40.0-70.0) % Lymphocytes % (Manual) 78.0 H (13.4-35.0) % Monocytes % (Manual) 4.0 (0.0-7.3) % Eosinophils % (Manual) 1.0 (0.0-4.3) % Basophils % (Manual) 1.0 (0.0-1.8) % Nucleated RBC % Not Reportable Seg Neutrophils # Man 0.7 L (1.8-7.7) K/mm3 Band Neutrophils # 0.0 K/mm3 Lymphocytes # (Manual) 3.5 (1.2-5.4) K/mm3 Abs React Lymphs (Man) 0.0 K/mm3 Monocytes # (Manual) 0.2 (0.0-0.8) K/mm3 Eosinophils # (Manual) 0.0 (0.0-0.4) K/mm3 Basophils # (Manual) 0.0 (0.0-0.1) K/mm3 Metamyelocytes # 0.0 K/mm3 Myelocytes # 0.0 K/mm3 Promyelocytes # 0.0 K/mm3 Blast Cells # 0.0 K/mm3 WBC Morphology Not Reportable Hypersegmented Neuts Not Reportable Hyposegmented Neuts Not Reportable Hypogranular Neuts Not Reportable Smudge Cells Not Reportable Toxic Granulation Not Reportable Toxic Vacuolation Not Reportable Dohle Bodies Not Reportable Pelger-Huet Anomaly Not Reportable Kimberly Rods Not Reportable Platelet Estimate Consistent w auto Clumped Platelets Not Reportable Plt Clumps, EDTA Not Reportable Large Platelets Not Reportable Giant Platelets Not Reportable Platelet Satelliting Not Reportable Plt Morphology Comment Not Reportable RBC Morphology Not Reportable Dimorphic RBCs Not Reportable Polychromasia Not Reportable Hypochromasia Not Reportable Poikilocytosis Not Reportable Anisocytosis 1+ Microcytosis Not Reportable Macrocytosis Not Reportable Spherocytes Not Reportable Pappenheimer Bodies Not Reportable Sickle Cells Not Reportable Target Cells Not Reportable Tear Drop Cells Not Reportable Ovalocytes Few Helmet Cells Not Reportable Griffiths-[place] Neck Bodies Not Reportable Bogart Rings Not Reportable [place] Cells Not Reportable Bite Cells Not Reportable Crenated Cell Not Reportable Elliptocytes Not Reportable Acanthocytes (Spur) Not Reportable Rouleaux Not Reportable Hemoglobin C Crystals Not Reportable Schistocytes Not Reportable Malaria parasites Not Reportable Wilmer Bodies Not Reportable Hem Pathologist Commnt No Sodium 138 (137-145) mmol/L Potassium 4.6 (3.6-5.0) mmol/L Chloride 100.5 (98-107) mmol/L Carbon Dioxide 24 (22-30) mmol/L Anion Gap 18 mmol/L BUN 18 (9-20) mg/dL Creatinine 2.0 H (0.8-1.3) mg/dL Estimated GFR 44 ml/min BUN/Creatinine Ratio 9 % Glucose 75 (75-100) mg/dL Calcium 10.1 (8.4-10.2) mg/dL Total Bilirubin 0.40 (0.1-1.2) mg/dL AST 23 (5-40) units/L ALT 31 (7-56) units/L Alkaline Phosphatase 129 (35-129) units/L Troponin T < 0.010 < 0.010 (0.00-0.029) ng/mL Total Protein 7.0 (6.3-8.2) g/dL Albumin 4.4 (3.9-5) g/dL Albumin/Globulin Ratio 1.7 % - EKG Data -: EKG Interpreted by Sc - EKG Data 01/20/21 17:15 EKG shows a sinus tachycardia rate of 100. [place] is normal intervals are normal. Evidence of LVH. No obvious ST elevations. Time interpretation 1325 - Radiology Data [facility] [address] [place] [address] XRay Report Signed Patient: ESTEVAN CARVALHO MR#: [id number] : 1975 Acct:[id number] Age/Sex: 45 / M ADM Date: 01/20/21 Loc: ED Attending Dr: Ordering Physician: ED MD PUJA Date of Service: 01/20/21 Procedure(s): XR chest routine 2V Accession Number(s): [id number] cc: ED MD PUJA Fluoro Time In Minutes: CHEST 2 VIEWS 1339 INDICATION / CLINICAL INFORMATION: CP COMPARISON: 10/11/2020 FINDINGS: SUPPORT DEVICES: None. HEART / MEDIASTINUM: Heart size is now within normal limits. LUNGS / PLEURA: Pulmonary vascularity appears within normal limits. Lung toscano are clear. No pleural effusions are seen. No pneumothorax. ADDITIONAL FINDINGS: No significant additional findings. IMPRESSION: No significant acute abnormality Signer Name: Sameer Tee MD Signed: 01/20/2021 1:49 PM Workstation Name: [id number] - Medical Decision Making Patient presenting with atypical chest discomfort which is almost exclusively at night. Patient has a low heart score normal chest x-ray and 2 - troponins and the patient is stable for discharge. Symptoms most consistent with GERD however the patient is urged to keep his appointment with cardiology which is scheduled for tomorrow. Patient discharged home. Critical care attestation.: If time is entered above; I have spent that time in minutes in the direct care of this critically ill patient, excluding procedure time. ED Disposition Clinical Impression: Atypical chest pain Disposition: - TO HOME OR SELFCARE Is pt being admited?: No Does the pt Need Aspirin: No Condition: Stable Instructions: Nonspecific Chest Pain, Adult Prescriptions: Omeprazole 40 mg PO DAILY #30 capsule. Referrals: PRIMARY CARE, [Primary Care Provider] - 3-5 Days Time of Disposition: 17:19
[2021-01-20] MEDS ORDERED: LIDOCAINE VISCOUS 2% 15 ML ORAL LIQD PO ONE (18:12)
[2021-01-20] MEDS ORDERED: ALUM-MAG HYDROXIDE-SIMETHICONE 200-200-20MG/5ML ORAL LIQD 30 ML PO ONE (18:12)
[2021-01-20 18:31] VITALS: BP 170/88
--- NOTE | 2021-01-21 11:51 | Electrocardiograph Report ---
[facility] Test Date: 2021-01-20 Test Time: 13:22:23 Pat Name: ESTEVAN CARVALHO Department: Room: Gender: M Clinical Dietitian: : 1975 Requested By: KATHARINA SANTANA Order Number: [id number] Reading MD: Efrem Turner Measurements Intervals [place] Rate: 100 P: 86 MD: 143 QRS: 6 QRSD: 103 T: 63 QT: 353 QTc: 456 Interpretive Statements Sinus tachycardia Biatrial enlargement Left ventricular hypertrophy Nonspecific ST segment abnormality Compared to ECG 10/10/2020 11:46:34 Sinus rate has increased Electronically Signed On 01-21-2021 11:51:13 EDT by Efrem Turner
== END 2021-01-20 18:31 | disposition home or self-care (01) ==
LOC: ED 13:13
DX: R07.89 Other chest pain (principal); I10 Essential (primary) hypertension; Z79.899 Other long term (current) drug therapy; Z90.49 Acquired absence of other specified parts of digestive tract; Z87.891 Personal history of nicotine dependence
CPT/HCPCS: 36415; 71046; 80053; 84484; 85007; 85025; 93005; 96374; 99284; J1885